=== PATIENT | female | born 1975 | race Caucasian/White ===

== ENCOUNTER → 2020-08-21 14:00 | Outpatient (REF) | payer OTHER, SELFPAY ==
--- NOTE | 2020-08-21 14:10 | ECG_ITS ---
Hook-up date: 2020-08-21 14:16:00 Duration: 24:22:00 Test Indications: PALPITATIONS Medications: [id number] QRS complexes 220 Ventricular ectopics which represent <1 % of total QRS comp. 1 Supraventricular ectopics which represent <1 % of total QRS comp. * Paced QRS complexs which represent % of total QRS comp. VENTRICULAR ECTOPY 220 Isolated 0 Bigeminal Cycles 0 Couplets 0 Runs 0 Beats in Runs * Beats LONGEST at * BPM at :: -- * Beats FASTEST at * BPM at :: -- SUPRAVENTRICULAR ECTOPY 1 Isolated 0 Couplets 0 Runs 0 Beats in Runs * Beats LONGEST at * BPM at :: -- * Beats FASTEST at * BPM at :: -- HEART RATES 53 MIN at 03:32:29 2020-08-22 84 AVG 150 MAX at 06:02:42 2020-08-22 LONGEST RR 1.2080 secs at 04:31:01 2020-08-22 S-T LEVELS Channel 1 - 128 mm at 14:16:00 2020-08-21 - 128 mm at 14:16:00 2020-08-21 Channel 2 - 128 mm at 14:16:00 2020-08-21 - 128 mm at 14:16:00 2020-08-21 Channel 3 - 128 mm at 03:33:51 -- - 128 mm at 03:33:51 Underlying rhythm is sinus; Average ventricular rate 84/min; range 53-150/min; About 19% of the time, ventricular rate >100/min; Rare PVCs; Symptoms of shortness of breath, chest pressure correlate with sinus rhythm. Referred By: Adrianna Dyer Overread By: SHAYAN KYLE
== END ==
LOC: HO.CARD 14:00
PROVIDERS: Visit Provider Registered Nurse Community Health
DX: R00.2 Palpitations (principal)
CPT/HCPCS: 93225; 93226

== ENCOUNTER 2020-11-20 10:37 | Outpatient (REF) | payer OTHER, SELFPAY ==
--- NOTE | ~2020-11-20 | XR_ITS ---
EXAMINATION: XR KNEE, LEFT CLINICAL INFORMATION: Left knee pain COMPARISON: None TECHNIQUE: Four views of the left knee. FINDINGS: Bones and soft tissues are normal. No fracture or joint effusion. Alignment is anatomic. Joint spaces are well maintained. No abnormal soft tissue calcification. XR/XR knee LT 4V IMPRESSION: Normal appearing left knee.
== END 2020-11-20 10:38 | disposition home or self-care (01) ==
LOC: HO.XRAY 10:37
PROVIDERS: PCP Internal Medicine; Visit Provider Internal Medicine
DX: M25.562 Pain in left knee (principal)
CPT/HCPCS: 73564

== ENCOUNTER 2022-06-28 12:43 | Outpatient (REF) | payer OTHER, SELFPAY ==
--- NOTE | ~2022-06-28 | XR_ITS ---
EXAMINATION: XR LUMBOSACRAL SPINE CLINICAL INFORMATION: Chronic midline low back pain. No sciatica. COMPARISON: Lumbar radiographs 10/11/2017. Ultrasound abdomen 04/06/2017 TECHNIQUE: Three views of the lumbosacral spine. FINDINGS: There is normal lumbar segmentation with 5 nonrib-bearing lumbar vertebrae of normal height and normal lumbar lordosis. No lumbar vertebral compression, spondylolisthesis, disc narrowing, or destructive process. No erosive changes. The SI joints and visualized sacrum are unremarkable. There are 2 incidental calcified granulomata are again seen left upper quadrant overlying the spleen. XR/XR lumbar spine 2-3V IMPRESSION: No vertebral compression, spondylolisthesis, or disc narrowing.
== END 2022-06-28 12:44 | disposition home or self-care (01) ==
LOC: HO.XRAY 12:43
PROVIDERS: PCP Internal Medicine; Visit Provider Internal Medicine
DX: M54.50 Low back pain, unspecified (principal); G89.29 Other chronic pain
CPT/HCPCS: 72100

== ENCOUNTER 2023-07-07 12:36 | Outpatient (REF) | payer OTHER, SELFPAY ==
[2023-07-07 14:29] LABS: MANUAL DIFF FLAG NO
[2023-07-07 14:33] LABS: Basophils Percent Auto 0.6 % (0-2); Eosinophils Absolute Auto 0.1 X10*3/uL (0.0-0.4); Eosinophils Percent Auto 1.5 % (0-4); Hematocrit 39.5 % (37.0-47.0); Hemoglobin 12.8 g/dl (12.0-16.0); Imm Gran Abs Auto 0.02 X10*3/uL (0.00-0.03); Imm Gran Pct Auto 0.3 % (0.0-0.4); Lymphocytes Absolute Auto 1.8 X10*3/uL (1.2-4.9); Lymphocytes Percent Auto 26.7 % (20-40); Mean Corpuscular HGB Conc 32.4 g/dl (31.0-35.0); Mean Corpuscular Hemoglobin 28.7 pg (27.0-33.0); Mean Corpuscular Volume 88.6 fL (80.0-98.0); Mean Platelet Volume 9.9 fL (9.4-12.3); Monocytes Absolute Auto 0.7 X10*3/uL (0.1-1.2); Monocytes Percent Auto 10.6 % (2-11); Neutrophils Percent Auto 60.3 % (45-73); Platelet Count 365 X10*3/uL (160-400); Red Blood Count 4.46 X10*6/uL (4.20-5.50); Red Cell Distribution Width 13.7 % (11.0-16.0); White Blood Count 6.6 X10*3/uL (4.8-10.8)
[2023-07-07 14:59] LABS: Alanine Aminotransferase 20 U/L (0-31); Albumin Level 4.2 g/dL (3.5-5.0); Alkaline Phosphatase 71 U/L (39-117); Anion Gap 11 (12-20); Aspartate Amino Transferase 16 U/L (5-31); Bilirubin Total 0.3 mg/dL (0.0-1.0); Blood Urea Nitrogen 18 mg/dL (9-16); Calcium 9.5 mg/dL (8.4-10.2); Carbon Dioxide 25 mmol/L (22-29); Chloride 107 mmol/L (96-108); Estimated Glomerular Filt Rate > 60; Glucose Random 88 mg/dL (60-115); Potassium 3.9 mmol/L (3.3-5.1); Sodium 139 mmol/L (135-145); Total Protein 7.6 g/dL (6.5-8.0)
[2023-07-07 15:05] LABS: TSH reflex Free T4 1.28 uIU/mL (0.32-4.0)
== END 2023-07-07 12:37 | disposition home or self-care (01) ==
LOC: HO.CHCLDS 12:36
PROVIDERS: Visit Provider Internal Medicine
DX: Z00.00 Encounter for general adult medical examination without abnormal findings (principal); R61 Generalized hyperhidrosis
CPT/HCPCS: 36415; 80053; 84443; 85025

== ENCOUNTER → 2023-08-16 15:27 | Outpatient (REF) | payer OTHER, SELFPAY ==
--- NOTE | 2023-08-16 15:32 | ECG_ITS ---
Test Reason : CP, SOB Blood Pressure : / mmHG Vent. Rate : 076 BPM Atrial Rate : 076 BPM P-R Int : 178 ms QRS Dur : 076 ms QT Int : 378 ms P-R-T Axes : 051 029 045 degrees QTc Int : 425 ms Normal sinus rhythm Normal ECG No previous ECGs available Referred By: Marlen Galindo Electronically Signed By:KRISTAN CARRINGTON MD
--- NOTE | 2023-08-16 15:33 | CA_ITS ---
Transthoracic Echocardiogram Patient (Last, First, Middle): Nivia Carr, Gender: Female Date of : 1975 Age: 48 Procedure Date: 08/16/2023 Procedure Type: Transthoracic Echocardiogram Location: OP Height: 160.02 cm Weight: 65.77 kg BSA: 1.69 m2 Heart Rate: bpm BP: 116 / 66 mmHg Finish Painter: Referring MD: Marlen Galindo MD Hydrogen Cell Tender: Cesar Castillo MD Symptoms: R06.02 SOB CHEST PAIN RO7.89 Study Quality: Good ECG Rhythm: Sinus Conclusions: - Normal study Findings Left Ventricle Normal left ventricular size, thickness, and systolic function. The visually estimated ejection fraction is between 55-60%. Spectral Doppler is indicative of a normal filling pattern. Peak GLS is -19.6%, within normal limits. Right Ventricle Normal right ventricular cavity size and systolic function. Atria Both atria are normal in size. There is no evidence of interatrial shunt. Aortic Valve Normal aortic valve structure and function. There is no aortic valve stenosis. There is no aortic valve regurgitation. Mitral Valve Normal mitral valve structure and function. There is trace mitral valve regurgitation. There is no mitral valve stenosis. Pulmonic Valve The pulmonic valve is likely normal. There is trace pulmonic valve regurgitation. Tricuspid Valve Normal tricuspid valve structure. There is trace tricuspid valve regurgitation. The right ventricular systolic pressure is normal. The right ventricular systolic pressure is 13 mmHg. Normal right atrial pressure. There is no evidence of pulmonary hypertension. Great Vessels All visible segments of the aorta are normal in size. The pulmonary artery was not well visualized. Venous The inferior vena cava is normal in size and collapses greater than 50% with inspiration. Pericardium/Pleural There is no evidence of pericardial effusion. Prior Study Comparison No prior study available for comparison. Measurements 2D Linear Measurements IVSd: 0.76 0.6-0.9/0.6-1.0 cm LVIDd: 4.05 3.9-5.3/4.2-5.9 cm LVIDd Index: 2.40 2.4-3.2/2.2-3.1 cm/m2 LVIDs: 2.43 2.0-3.6 cm LVPWd: 0.75 0.7-1.1 cm Ao Root: 2.80 2.1-3.5 cm LA Diam: 3.10 2.7-3.8/3.0-4.0 cm LAIDs Index: 1.83 1.5-2.3 cm/m2 LV Mass: 109.19 67-162/88-224 g LV Mass Index: 64.61 43-95/49-115 g/m2 LVOT Diam: 2.00 3.0+(-)1.3 cm 2D Systolic Function EF 4C: 59.20 >55% EF 2C: 55.30 >55% EF BiP: 57.60 >55% Mitral Valve MV Pk E: 0.92 MV PK A: 0.75 MV Decel Time: 155.00 E/A: 1.20 E'Lateral: 14.10 E'Medial: 10.70 E/E' Med: 8.60 E/E' Lat: 6.50 PHT: 45.00 MVA PHT: 4.89 Decel Edgar: 5.96 Aortic Valve AoV Pk Kiel: 1.31 AoV Mn Kiel: 0.78 AoV VTI: 0.28 AoV Pk Grad: 7.00 Aov Mn Grad: 3.00 KYE Cont.VTI: 2.71 LVOT LVOT Pk Kiel: 1.15 LVOT Mn Kiel: 0.74 LVOT VTI: 0.24 LVOT Pk Grad: 5.00 LVOT Mn Grad: 3.00 LVOT Diam: 2.00 LVOT Area: 3.14 Diastolic Function MV Pk E: 0.92 MV Pk A: 0.75 E/A: 1.20 E'Medial: 10.70 E/E' Med: 8.60 E' Laterial: 14.10 E/E' Lat: 6.50 Right Ventricle TAPSE (mm): 21.00 TVS' Kiel: 11.00 Tricuspid Valve TR Pk Kiel: 1.55 TR Pk Grad: 10.00 RA Press: 3.00 RVSP: 13.00 Great Vessels Aorta Ao Root-2D: 2.80 2.0-3.7 cm Ao Asc: 3.00 2.1-3.4 cm Pulmonary Valve PV Pk Kiel: 0.96 Peak PV Grad: 4.00 Updated in Other Vendor System with Status of Final Cesar Castillo MD electronically signed on 08/17/2023 3:10:46 PM with status of Final
== END ==
LOC: HO.CARD 15:27
PROVIDERS: PCP Internal Medicine; Visit Provider Internal Medicine
DX: R07.89 Other chest pain (principal); R06.02 Shortness of breath
CPT/HCPCS: 93005; 93306; 93356

== ENCOUNTER → 2023-08-16 15:32 | Outpatient (BNV) | payer OTHER, SELFPAY | PROVIDERS: PCP Internal Medicine; Visit Provider Internal Medicine Cardiovascular Disease | DX: R07.9 Chest pain, unspecified (principal); R06.02 Shortness of breath | CPT/HCPCS: 93306; 93356 ==

== ENCOUNTER 2024-01-21 10:48 | Outpatient (REF) | payer OTHER, SELFPAY ==
--- NOTE | ~2024-01-21 | XR_ITS ---
EXAMINATION: XR HAND/WRIST, LEFT CLINICAL INFORMATION: Left hand and wrist and thumb pain. COMPARISON: None available. TECHNIQUE: PA, lateral, and oblique views of the left hand and wrist. FINDINGS: The bones and soft tissues are normal. No fracture. Alignment is anatomic. Joint spaces are maintained. No erosions or soft tissue calcifications. XR/XR hand wrist LT IMPRESSION: Normal radiographs of the hand and wrist. Electronically signed by: Mekhi Guerrero MD 01/27/2024 07:30 AM EDT
== END 2024-01-21 10:49 | disposition home or self-care (01) ==
LOC: HO.XRAY 10:48
PROVIDERS: PCP Pediatrics; Visit Provider Pediatrics
DX: M25.532 Pain in left wrist (principal); M79.642 Pain in left hand
CPT/HCPCS: 73110; 73130

== ENCOUNTER 2024-06-18 15:58 | Outpatient (REF) | payer OTHER, SELFPAY ==
--- OUTSIDE RECORDS SUMMARY | 2024-06-18 17:16 | XMS_ITS | Clinical Summary ---
Author Organization [employer] Address [address] [facility] 7[address] [place] [address] Care Team Providers Care Clinical Account Manager Name Role Phone Marlen Galindo MD Primary Care Provider Allergies No known active allergies Medications fexofenadine (Allergy Relief) 180 MG tabletIndicatio ns:Seasonal allergies Take 1 tablet (180 mg) by mouth Once per day. 30 tablet 11 4 01/14/20 25 Active lidocaine-prilo maris (Emla) 2.5-2.5 % cream Apply topically bid to affected area 30 g 1 4 Active pseudoephedrine (Sudafed) 30 MG tabletIndicatio ns:Vertigo Take 1 tablet (30 mg) by mouth every 4 (four) hours if needed for congestion for up to 10 days. 30 tablet 4 Active loratadine (Claritin) 10 MG tabletIndicatio ns:Acute sinusitis with symptoms > 10 days Take 1 tablet (10 mg) by mouth Once per day. 30 tablet 4 Active Active Problems Problem Noted Date Diagnosed Date Vitamin D deficiency 2022 Legal blindness [place] 02/07/2014 Encounters Date Type Department Care Team Description 06/12/2024 Telephone [facility] [address] [place] [address] Marlen Galindo MD 04/05/2024 Telephone [facility] [address] [place] [address] Marlen Galindo MD 04/04/2024 Orders Only [facility] [address] [place] [address] Marlen Galindo MD Seasonal allergies (Primary Dx) 03/27/2024 3:20 PM EST Office Visit [facility] [address] [place] [address] Marlen Galindo MD Vertigo (Primary Dx); Acute sinusitis with symptoms > 10 days 03/27/2024 Travel 03/27/2024 Telephone [facility] [address] [place] [address] Marlen Galindo MD Nurse Triage from Last 3 Months Immunizations Name Administration Dates Next Due Influenza injectable quadriv alent IIV4 with preservative 03/04/2016 Influenza injectable quadriv alent preservative free 07/07/2023,06/14/2019,05/22/2018,2016 Influenza, IIV3, injectable 02/07/2014 Influenza, Split (incl. alexandra fied surface antigen) 02/21/2013 Influenza, seasonal, injecta ble, preservative free 02/14/2024 Moderna Covid-19 Vaccine 12+ 09/15/2020,08/19/19 21 Pfizer Covid-19 Vaccine 12+ 02/14/2024 Tdap 07/07/2023,05/22/2012 Family History Medical History Relation Name Comments Dementia Father Diabetes type II Father Hypertension Father Leukemia Maternal Grandfather Fibromyalgia Mother Osteoporosis Mother Supraventricular tachycardia Mother Thyroid disease Mother Relation Name Status Comments Father Maternal Grandfather Mother Social History Tobacco Use Types Packs/Day Years Used Date Smoking Tobacco: Never Passive Smoke Exposure: Never Smokeless Tobacco: Never Tobacco Cessation:Counseling Given: Not Answered Depression Answer Date Recorded Patient Health Questionnaire-9 Score 4 07/07/2023 Patient Health Questionnaire-9 Score 4 07/07/2023 Last PHQ-9: Questionnaire Data Not on file 0 07/07/2023 Housing Stability Answer Date Recorded What is your housing situation today? I have chon aleman 06/30/[address] you li ve. Do you have problems with any of the following? None of the above 06/30/2023 Food Insecurity Answer Date Recorded Within the past 12 months, y ou worried that your food would run out before you got money to buy more: Never True 06/30/2023 Within the past 12 months,th e food you bought just didn't last and you didn't have enough money to get more: Never True Transportation Answer Date Recorded In the past 12 months, has l ack of transportation kept you from medical appts, meetings, work or from getting things needed for daily living? No 06/30/2023 Utilities Answer Date Recorded In the past 12 months, has t he [employer], gas, oil or water company threatened to shut off services in your home? No 06/30/2023 Depression Answer Date Recorded Patient Health Questionnaire-2 Score 0 07/07/2023 Comments Unknown Sex and Gender Information Value Date Recorded Sex Assigned at Female 03/15/2022 10:17 AM EDT Legal Sex Female 10:17 AM EDT Gender Identity Female 03/15/2022 10:17 AM EDT Sexual Orientation Straight 03/15/2022 10 :17 AM EDT Last Filed Vital Signs Vital Sign Reading Time Taken Comments Blood Pressure 125/80 03/27/2024 3:28 PM EST Pulse 74 03/27/2024 3:28 PM EST Temperature 36.5 ??C (97.7 ??F) 03/27/2024 3:28 PM ES T Respiratory Rate 20 03/27/2024 3:28 PM EST Oxygen Saturation 99% 03/27/2024 3:28 PM EST Inhaled Oxygen Concentration - - Weight 68.5 kg (151 lb) 03/27/2024 3:28 PM EST Height 160 cm (5' 3 ) 03/27/2024 3:28 PM EST Body Mass Index 26.75 03/27/2024 3:28 PM EST Plan of Treatment Upcoming Encounters Date Type Department Care Team (Late st Contact Info) Description 06/20/2024 3:00 PM EST Clinical Support [facility] [address] [place] [address] 07/09/2024 9:30 AM EST Office Visit [facility] [address] [place] [address] Marlen Galindo MD [address] [place] [address] Health Maintenance Due Date Last Done Comments CT Colonography 1975 FIT DNA/Cologuard 1975 FIT 1975 FOBT 1975 HIV Screening 1975 Sigmoidoscopy 1975 Alcohol/Substance Use Screening 1988 Family Planning (PISQ) 1991 Hepatitis B Vaccines (1 of 3 - 19+ 3-dose series) 1995 Pap Smear 1997 Cervical Cancer Screening 2006 HPV/Cotest 2006 Mammogram 03/30/2024 03/30/2022 SDOH Screening 06/30/2024 06/30/2023 Depression Screening 07/07/2024 07/07/2023, 07/07/19 24 Tobacco Screening 03/27/2025 03/27/2024 Colonoscopy 01/13/2026 01/13/2021 Colorectal Cancer Screening 01/13/2026 Zoster Vaccines (1 of 2) 2026 DTaP/Tdap/Td Vaccines (3 - Td or Tdap) 07/07/2033 07/07/2023, 05/22/2012 RSV Patients and Patients Aged 60 years or older (1 - 1-dose 75+ series) 2051 Hepatitis C Screening Completed 03/26/2022 COVID-19 Vaccine Completed 02/14/2024, , 09/15/2020, Additional history exists Influenza Vaccine Completed 02/14/2024, , 04/29/2021, Additional history exists HIB Vaccines Aged Out No longer eligi ble based on patient's age to complete this topic HPV Vaccines Aged Out No longer eligi ble based on patient's age to complete this topic Hepatitis A Vaccines Aged Out No long er eligible based on patient's age to complete this topic IPV Vaccines Aged Out No longer eligi ble based on patient's age to complete this topic Meningococcal Vaccine Aged Out No clotilde elvira eligible based on patient's age to complete this topic Pneumococcal Vaccine: Pediatrics (0 to 5 Years) and At-Risk Patients (6 to 49) Years) Aged Out No longer eligible based on patient's age to complete this topic RSV under 20 months Aged Out No longe r eligible based on patient's age to complete this topic Rotavirus Vaccines Aged Out No longer eligible based on patient's age to complete this topic Procedures Procedure Name Priority Date/Time Associated Diagnosis Comments XR PARANASAL SINUSES 1-2 VIEWS Routine 04/02/2024 Acute sinusitis with symptoms > 10 days MAMMOGRAPHY Routine 03/30/2022 ZZZ HISTORICAL HEPATITIS C AB W/REFL TO HCV RNA, QN, PCR Routine 03/26/2022 9:10 AM EST COLONOSCOPY Routine 01/13/2021 from Last 3 Months or Most Recently Relevant to Health Maintenance Results * XR Paranasal Sinuses 1-2 Views (04/02/2024) Anatomical Region Laterality Modality Head, Neck Radiographic Barb ging Marlen Galindo MD IMG XR PROCEDURES Final Res ult * Mammography (03/30/2022) Mammogram Bi-rads 2 Anatomical Region Laterality Modality Other us Historical Provider MD HEALTH MAINTENANCE Final Result * HEPATITIS C AB W/REFL TO HCV RNA, QN, PCR (03/26/2022 9:10 AM EST) HEPATITIS C ANTIBODY NON-REACTI VE NON-REACT PALMER CONVERTED LEGACY LABS INDEX 0.04 <1.00 CONVERTED LEGACY LABS Comment: ?? HCV antibody was non-reactive. There is no laboratory ?? evidence of HCV infection. ?? In most cases, no further action is required. However, if recent HCV exposure is suspected, a test for HCV RNA (test code 92499) is suggested. ?? For additional information please refer to http://education.[employer])/faq/TPZ51q8 (This link is being provided for informational/ educational purposes only.) ?? 03/26/2022 9:10 AM EST us Marlen Galindo MD HISTORICAL/NON ORDERABLE LA BS Final Result CONVERTED LEGACY LABS * Hm Colonoscopy (01/13/2021) Colonoscopy Normal Normal Narrative [place] Damon - 01/13/2021 Recommended 5 year follow up us Historical Provider MD HEALTH MAINTENANCE Final Result from Last 3 Months or Most Recently Relevant to Health Maintenance Insurance - [employer] Care Teams Clinical Account Manager Relationship Specialty Start Date End Date Marlen Galindo MD [address] [place] [phone] PCP - General Internal Medicine 12/23/14
--- OUTSIDE RECORDS SUMMARY | 2024-06-18 17:16 | XMS_ITS | Encounter Summary ---
Author Organization [employer] Address [address] [facility] 7 [place] [address] Care Team Providers Care Advertising Production Manager Name Role Phone Marlen Galindo MD Primary Care Provider [phone]- [phone] Reason for Visit * Reason Onset Date Comments Results 08/19/2023 Encounter Details Date Type Department Care Team ([facility] st Contact Info) Description 08/19/2023 Telephone [facility] [address] [place] [address] Marlen Galindo MD [address] [place] [address] Results Social History Tobacco Use Types Packs/Day Years Used Date Smoking Tobacco: Never Smokeless Tobacco: Never Depression Answer Date Recorded Patient Health Questionnaire-9 [...] the past 12 months, has t he electric, gas, oil or water company threatened to shut off services in your home? No 06/30/2023 Depression Answer Date Recorded Patient Health Questionnaire-2 Score 0 07/07/2023 Comments Unknown Sex and Gender Information Value Date Recorded Sex Assigned at Female 03/15/2022 10:17 AM EDT Legal Sex Female 10:17 AM EDT Gender Identity Female 03/15/2022 10:17 AM EDT Sexual Orientation Straight 03/15/2022 10 :17 AM EDT documented as of this encounter Miscellaneous Notes * Telephone Encounter - Mindi Moss RN - 08/22/2023 10:21 AM EDT Normal ECG letter mailed out to pt. * Telephone Encounter - Roseline Fiore - 08/19/2023 12:51 PM EDT Tc from pt requesting ECG results. Please contact at [phone] documented in this encounter Plan of Treatment Upcoming Encounters Date Type Department Care Team (Late st Contact Info) Description 06/20/2024 3:00 PM EST Clinical Support [facility] [address] [place] [address] 07/09/2024 9:30 AM EST Office Visit [facility] [address] [place] [address] Marlen Galindo MD [address] [place] [address] documented as of this encounter Visit Diagnoses Not on filedocumented in this encounter Additional Health Concerns Assessment Noted Time PHQ-9 Depression Total Score: 4 07/07/19 2:01 PM EST documented as of this encounter Care Teams Advertising Production Manager Relationship Specialty Start Date End Date Marlen Galindo MD [address] [place] [address] PCP - General Internal Medicine 12/23/14 documented as of this encounter
--- OUTSIDE RECORDS SUMMARY | 2024-06-18 17:16 | XMS_ITS | Encounter Summary ---
Author Organization [employer] Address [address] [facility] [address] [place] [address] Care Team Providers Care Millinery Blocker Name Role Phone Marlen Galindo MD Primary Care Provider [phone]- [phone] Encounter Details Date Type Department Care Team ([facility] st Contact Info) Description 06/12/2024 Telephone [facility] [address] [place], [place] [id number] Marlen Galindo MD [address] [place] [address] Social History Tobacco Use Types Packs/Day Years Used Date Smoking Tobacco: Never Passive Smoke Exposure: Never Smokeless Tobacco: Never Depression Answer Date [...] encounter Miscellaneous Notes * Telephone Encounter - Jenny Otero RN - 06/12/2024 3:16 PM EST TC placed to pt to assisst in scheduling a [place] to have the hepatitis B vaccine. Pt will need the first out of the three dose series. Pt was agreeable to scheduling on 06/20/2024 with the [facility] nurses. Pt also will have ordered TB blood test drawn on that day as well. The pt needs this testing for work. * Telephone Encounter - Janey Seo - 06/12/2024 10:57 AM EST Tc from pt calling to inform needs a TB test and also would like to know if she is due for the Hep B vaccin . States her job is requesting above information. documented in this encounter Plan of Treatment Upcoming Encounters Date Type Department Care Team (Late st Contact Info) Description 06/20/2024 3:00 PM EST Clinical Support [facility] [address] [place] [address] 07/09/2024 9:30 AM EST Office Visit [facility] [address] [place] [address] Marlen Galindo MD [address] [place] [address] Scheduled Orders Name Type Priority Associated Diagnoses Orde r Schedule T-SPOT??.TB Lab Routine Encounter for occupational health assessment Expected: 06/12/2024 (Approximate), Expires: 06/12/2025 documented as of this encounter Visit Diagnoses Diagnosis Encounter for occupational health assessment documented in this encounter Additional Health Concerns Assessment Noted Time PHQ-9 Depression Total Score: 4 07/07/19 24 2:01 PM EST documented as of this encounter Care Teams Millinery Blocker Relationship Specialty Start Date End Date Marlen Galindo MD [address] [place] [id number] PCP - General Internal Medicine 12/23/14 documented as of this encounter
--- OUTSIDE RECORDS SUMMARY | 2024-06-18 17:16 | XMS_ITS | Encounter Summary ---
Author Organization [employer] Address [address] [facility] [address] [address] Care Team Providers Care Fire Assistant Name Role Phone Marlen Galindo MD Primary Care Provider [phone]- [phone] Reason for Referral * Consultation (Routine) - Authorized Specialty Diagnoses / Procedures Referred By Contmelissa t Referred To Contact Allergy Diagnoses Seasonal allergies Marlen Galindo MD [address] [place] [address] Phone: tel: fax: Nando Wren MD [address] [place] [address] [address] [place] [phone] Phone: tel: fax: Referral ID Status Reason Start Date Expiration Date Visits Requested Visits Authorized [id number] Authorized Specialty Services Required 04/04/2025 1 1 Encounter Details Date Type Department Care Team (Late st Contact Info) Description 04/04/2024 Orders Only [facility] [address] [place] [address] Marlen Galindo MD [address] [place] [address] Seasonal allergies (Primary Dx) Social History Tobacco Use Types Packs/Day Years [...] AM EDT documented as of this encounter Plan of Treatment Upcoming Encounters Date Type Department Care Team ([facility] st Contact Info) Description 06/20/2024 3:00 PM EST Clinical Support [facility] [address] [place] [address] 07/09/2024 9:30 AM EST Office Visit [facility] [address] [place] [address] Marlen Galindo MD [address] [place] [address] Scheduled Referrals Name Type Priority Associated Diagnoses Orde r Schedule Referral to Allergy Outpatient Referral Routine Seasonal allergies Expected: 04/04/2024 (Approximate), Expires: 04/04/2025 documented as of this encounter Visit Diagnoses Diagnosis Seasonal allergies- Primary Allergic rhinitis, cause unspecified documented in this encounter Additional Health Concerns Assessment Noted Time PHQ-9 Depression Total Score: 4 07/07/19 24 2:01 PM EST documented as of this encounter Care Teams Fire Assistant Relationship Specialty Start Date End Date Marlen Galindo MD [address] [place] [address] PCP - General Internal Medicine 12/23/14 documented as of this encounter
--- OUTSIDE RECORDS SUMMARY | 2024-06-18 17:16 | XMS_ITS | Encounter Summary ---
Author Organization [employer] Address [address] [facility] [address] [place] [address] Care Team Providers Care Spreader Box Operator Name Role Phone Marlen Galindo MD Primary Care Provider +1 [phone] Encounter Details Date Type Department Care Team (Late st Contact Info) Description 03/11/2023 Abstract [facility] MEDICINE [address] [place] [address] Marlen Galindo MD [address] [place] [address] Social History Tobacco Use Types Packs/Day Years Used Date Smoking Tobacco: Never Smokeless Tobacco: Never Depression Answer Date Recorded Patient Health Questionnaire-9 Score 1 2022 Housing Stability Answer Date Recorded What is your housing situation today? I have chonshai aleman 03/11/[address] you li ve. Do you have problems with any of the following? None of the above 03/11/2023 Food Insecurity Answer Date Recorded Within the past 12 months, y ou worried that your food would run out before you got money to buy more: Never True 03/11/2023 Within the past 12 months,th e food you bought just didn't last and you didn't have enough money to get more: Never True Transportation Answer Date Recorded In the past 12 months, has l ack of transportation kept you from medical appts, meetings, work or from getting things needed for daily living? No 03/11/2023 Utilities Answer Date Recorded In the past 12 months, has t he electric, gas, oil or water company threatened to shut off services in your home? No 03/11/2023 Depression Answer Date Recorded Patient Health Questionnaire-2 Score 0 2022 Comments Unknown Sex and Gender Information Value Date Recorded Sex Assigned at Female 03/15/2022 10:17 AM EDT Legal Sex Female 10:17 AM EDT Gender Identity Female 03/15/2022 10:17 AM EDT Sexual Orientation Straight 03/15/2022 10 :17 AM EDT documented as of this encounter Plan of Treatment Upcoming Encounters Date Type Department Care Team ([facility] st Contact Info) Description 06/20/2024 3:00 PM EST Clinical Support [facility]EDS [address] [place] [address] 07/09/2024 9:30 AM EST Office Visit [facility] [address] [place] [address] Marlen Galindo MD [address] [place] [address] documented as of this encounter Procedures Procedure Name Priority Date/Time Associated Diagnosis Comments MAMMOGRAPHY Routine 03/30/2022 COLONOSCOPY Routine 01/13/2021 documented in this encounter Results * Mammography (03/30/2022) Mammogram Bi-rads 2 Anatomical Region Laterality Modality Other Historical Provider HEALTH MAINTENANCE Final Result * Colonoscopy (01/13/2021) Colonoscopy Normal Normal Narrative Africa Damon - 01/13/2021 Recommended 5 year follow up Historical Provider HEALTH MAINTENANCE Final Result documented in this encounter Visit Diagnoses Not on filedocumented in this encounter Additional Health Concerns Assessment Noted Time PHQ-9 Depression Total Score: 1 06/17/19 23 9:39 AM EST documented as of this encounter Care Teams Spreader Box Operator Relationship Specialty Start Date End Date Marlen Galindo MD [address] [place] [address] PCP - General Internal Medicine 12/23/14 documented as of this encounter
--- OUTSIDE RECORDS SUMMARY | 2024-06-18 17:16 | XMS_ITS | Encounter Summary ---
Author Organization [employer] [facility] Address [address] [place] [address] [address], [place] [address] Care Team Providers Care Supervisor Tank Cleaning Name Role Phone Marlen Galindo MD Primary Care Provider +1- [phone] Encounter Details Date Type Department Care Team (Latest Contact Info) Description 03/19/2021 Abstract [facility] CONVERSIONS Dental, Provider, DDS Social History Tobacco Use Types Packs/Day Years Used Date Smoking Tobacco: Never Assessed Comments Unknown Sex and Gender Information Value Date Recorded Sex Assigned at Female 03/15/2022 10:17 AM EDT Legal Sex Female 10:17 AM EDT Gender Identity Female 03/15/2022 10:17 AM EDT Sexual Orientation Straight 03/15/2022 10 :17 AM EDT documented as of this encounter Plan of Treatment Upcoming Encounters Date Type Department Care Team ( st Contact Info) Description 06/20/2024 3:00 PM EST Clinical Support [facility] MED & PEDS [address] [place] [address] 07/09/2024 9:30 AM EST Office Visit [facility] MED [facility] PED[facility] [address] [place] [address] Marlen Galindo MD [address] [place] [address] documented as of this encounter Visit Diagnoses Not on filedocumented in this encounter Care Teams Supervisor Tank Cleaning Relationship Specialty Start Date End Date Marlen Galindo MD [address] [place] [address] PCP - General Internal Medicine 12/23/14 documented as of this encounter
--- OUTSIDE RECORDS SUMMARY | 2024-06-18 17:16 | XMS_ITS | Clinical Summary ---
Author Organization [facility] Address [address] [place] [address] Phone Care Team Providers Care E M Assembler Name Role Phone Marlen Galindo MD Primary Care Provider +1 -[phone] Encounters Date Type Department Care Team Description 04/02/2024 12:26 PM EST - 04/02/2024 11:59 PM EST Hospital Encounter [facility] Xray [address] [place] [address] Acute sinusitis, recurrence not specified, unspecified location Discharge Disposition: Home or Self Care from Last 3 Months Social History Tobacco Use Types Packs/Day Years Used Date Smoking Tobacco: Never Assessed Sex and Gender Information Value Date Recorded Sex Assigned at Female 04/02/2024 12:18 PM EST Gender Identity Female 04/02/2024 12:18 PM EST Sexual Orientation Straight 04/02/2024 12 :18 PM EST Job Start Date Occupation Industry Not on file Not on file Not on file Plan of Treatment Health Maintenance Due Date Last Done Comments Breast Cancer Screening 1976 Hepatitis B Vaccines (1 of 3 - 19+ 3-dose series) 1995 Cervical Cancer Screening: Pap Smear 1997 Colorectal Cancer Screening: Colonoscopy 04/18/2022 HIV Screening 04/18/2022 Hepatitis C Screening 04/18/2022 Medicare Annual Wellness Visit 04/18/2022 Social Influencers of Health Screening 04/18/2022 Depression Screening 07/07/2024 07/07/2023 DTaP,Tdap,and Td Vaccines (3 - Td or Tdap) 07/07/2033 07/07/2023, 05/22/2012 COVID-19 Vaccine Completed 02/14/2024, , 09/15/2020, Additional [...] on patient's age to complete this topic MMR Vaccines Aged Out No longer eligi ble based on patient's age to complete this topic Meningococcal ACWY Vaccine Aged Out N o longer eligible based on patient's age to complete this topic Pneumococcal Vaccine: Pediatrics (0 to 5 Years) and At-Risk Patients (6 to 64 Years) Aged Out No longer eligible based on patient's age to complete this topic RSV Immunization Patients Under 20 months Aged Out No longer eligible based on patient's age to complete this topic Varicella Vaccines Aged Out No longer eligible based on patient's age to complete this topic Procedures Procedure Name Priority Date/Time Associated Diagnosis Comments XR PARANASAL SINUSES LESS 3 VIEWS Routine 04/02/2024 12:39 PM EST Acute sinusitis, recurrence not specified, unspecified location from Last 3 Months Results * XR Paranasal Sinuses Less 3 Views (04/02/2024 12:39 PM EST) Anatomical Region Laterality Modality Head and Neck Radiographic Barb ging 04/03/2024 9:38 AM EST Impressions 04/03/2024 9:38 AM EST Impression: No evidence of sinusitis. -------- FINAL REPORT -------- Dictated By: Judith Malone Dictated Date: 04/03/2024 09:38 ET Assigned Physician: Judith Malone Reviewed and Electronically Signed By: Judith Malone Signed Date: 04/03/2024 09:38 ET Workstation ID: [id number] Transcribed By: Self Edit Transcribed Date: 04/03/2024 09:38 ET Narrative 04/03/2024 9:38 AM EST History: Facial pain and pressure. Findings: Multiple views of the paranasal sinuses are submitted. The sinuses are well- developed and clear. The mastoids are well-pneumatized. Procedure Note Judith Malone MD - 04/03/2024 History: Facial pain and pressure. Findings: Multiple views of the paranasal sinuses are submitted. The sinuses arewell- developed and clear. The mastoids are well-pneumatized. IMPRESSION: Impression: No evidence of sinusitis. -------- FINAL REPORT -------- Dictated By: Judith Malone Dictated Date: 04/03/2024 09:38 ET Assigned Physician: Judith Malone Reviewed and Electronically Signed By: Judith Malone Signed Date: 04/03/2024 09:38 ET Workstation ID: [id number] Transcribed By: Self Edit Transcribed Date: 04/03/2024 09:38 ET Marlen Galindo MD IMG XR PROCEDURES from Last 3 Months Care Teams E M Assembler Relationship Specialty Start Date End Date Marlen Galindo MD [address] [place] [address] PCP - General Internal Medicine 04/02/24
--- OUTSIDE RECORDS SUMMARY | 2024-06-18 17:16 | XMS_ITS | Encounter Summary ---
Author Organization [employer] Address [address] [facility] 7 [place] [address] Care Team Providers Care Cryptographic Clerk Name Role Phone Marlen Galindo MD Primary Care Provider +1- [phone] Reason for Visit * Reason Onset Date Comments Referral 06/06/2023 Encounter Details Date Type Department Care Team ([facility] st Contact Info) Description 06/06/2023 Telephone [facility] MEDICINE [address] [place] [address] Marlen Galindo MD [address] [place] [address] Referral Social History Tobacco Use Types Packs/Day Years [...] encounter Miscellaneous Notes * Telephone Encounter - Enriqueta Pisano - 06/06/2023 12:45 PM EST New referral faxed. * Telephone Encounter - Roseline Fiore - 06/06/2023 12:08 PM EST Tc from pt requesting a referral renewal for team rehab. Please contact at [phone] documented in this encounter Plan of Treatment Upcoming Encounters Date Type Department Care Team ([facility] st Contact Info) Description 06/20/2024 3:00 PM EST Clinical Support [facility] MED & PEDS [address] [place] [address] 07/09/2024 9:30 AM EST Office Visit [facility] MED & PEDS [address] [place] [address] Marlen Galindo MD [address] [place] [address] documented as of this encounter Visit Diagnoses Not on filedocumented in this encounter Additional Health Concerns Assessment Noted Time PHQ-9 Depression Total Score: 1 06/17/19 23 9:39 AM EST documented as of this encounter Care Teams Cryptographic Clerk Relationship Specialty Start Date End Date Marlen Galindo MD [address] [place] [address] PCP - General Internal Medicine 12/23/14 documented as of this encounter
--- OUTSIDE RECORDS SUMMARY | 2024-06-18 17:16 | XMS_ITS | Encounter Summary ---
Author Organization [employer] Address [address] [facility] 7 [place] [address] Care Team Providers Care Production Tester Name Role Phone Marlen Galindo MD Primary Care Provider +1- [phone] Reason for Visit * Reason Onset Date Comments r/s sick visit 06/15/2022 Encounter Details Date Type Department Care Team (Late st Contact Info) Description 06/15/2022 Telephone [facility] MEDICINE [address] [place] [address] Marlen Galindo MD [address] [place] [address] r/s sick visit Social History Tobacco Use Types Packs/Day Years Used Date Smoking Tobacco: Never Assessed Depression Answer Date Recorded Patient Health Questionnaire-9 [...] Orientation Straight 03/15/2022 10 :17 AM EDT COVID-19 Exposure Response Date Recorded In the last 10 days, have yo u been in contact with someone who was confirmed or suspected to have Coronavirus/COVID-19? No / Unsure 09/29/2022 1:57 PM EDT documented as of this encounter Miscellaneous Notes * Telephone Encounter - Roseline Fiore - 06/15/2022 3:13 PM EST Tc from pt requesting to r/s sick visit ( low back pain, radiates down the left leg ) scheduled for06/15/22 @ 4pm with PCP , Appt has been cancelled. Please contact at [phone] documented in this encounter Plan of Treatment Upcoming Encounters Date Type Department Care Team (Late st Contact Info) Description 06/20/2024 3:00 PM EST Clinical Support [facility] MED & PEDS [address] [place] [address] 07/09/2024 9:30 AM EST Office Visit [facility] MED & PEDS [address] [place] [address] Marlen Galindo MD [address] [place] [address] documented as of this encounter Visit Diagnoses Not on filedocumented in this encounter Care Teams Production Tester Relationship Specialty Start Date End Date Marlen Galindo MD [address] [place] [address] PCP - General Internal Medicine 12/23/14 documented as of this encounter
[2024-06-21 00:49] LABS: TS Negative Control Passed; TS Panel A 0; TS Panel B 1; TS Positive Control Passed; TSpotTB Negative (Negative)
== END 2024-06-18 15:59 | disposition home or self-care (01) ==
LOC: HO.CHCLDS 15:58
PROVIDERS: Visit Provider Internal Medicine
DX: Z02.89 Encounter for other administrative examinations (principal)
CPT/HCPCS: 36415; 86481

== ENCOUNTER 2024-07-09 10:37 | Outpatient (REF) | payer OTHER, SELFPAY ==
--- OUTSIDE RECORDS SUMMARY | 2024-07-09 12:01 | XMS_ITS | Encounter Summary ---
Author Organization [employer] Address [address] [facility] 7t [place] [address] Care Team Providers Care Machine Hamper Maker Name Role Phone Marlen Galindo MD Primary Care Provider [phone]- [phone] Encounter Details Date Type Department Care Team ([facility] st Contact Info) Description 06/12/2024 Telephone [facility] MED & PEDS [address] [place], [place] [phone] Marlen Galindo MD [address] [place] [address] Social History Tobacco Use Types Packs/Day Years [...] agreeable to scheduling on 06/20/2024 with the [facility] nurses. Pt also will have ordered TB [...] Care Team (Late st Contact Info) Description 07/19/2024 1:00 PM EST Nurse Only [facility] MED & PEDS [address] [place] [address] 10/10/2024 9:45 AM EDT Office Visit [facility] MED & PEDS [address] [place] [address] Marlen Galindo MD [address] [place] [address] documented as of this encounter Procedures Procedure Name Priority Date/Time Associated Diagnosis Comments T-SPOT(R).TB Routine 06/18/2024 4:00 PM EST Encounter for occupational health assessment documented in this encounter Results * T-SPOT??.TB (06/18/2024 4:00 PM EST) T Spot TB Negative Negative [facility] Comment:A negative test resu lt does not exclude the possibilityof exposure to or infection with Mycobacteriumtuberculosis (M. tuberculosis). Patients with recentexposure to TB infected individuals exhibiting anegative T-SPOT.TB result should be considered forretesting within 6 weeks or if other relevant clinicalsymptoms indicate. Results from T-SPOT.TB testing mustbe used in conjunction with each individual'sepidemiological history, current medical status,and results of other diagnostic evaluations.The T-SPOT.TB test is qualitative and results arereported as positive, borderline, or negative, giventhat the test controls perform as expected. In linewith the Centers for Disease Control and Prevention's2010 recommendation to report quantitative measurementsalongside the qualitative result, the laboratoryprovides spot counts for informational purposes only.The T-SPOT.TB test should not be interpreted as aquantitative test. TS PANEL A 0 [facility] TS PANEL B 1 [facility] Negative Control Passed [facility] Positive Control Passed [facility] Comment:For additional infor mena, please refer tohttp://education.[employer]/faq/ZUL128(This link is being provided for informational/educational purposes only.)THIS TEST WAS PERFORMED AT:[employer] [id number] [place] [address]HPEHRIVRYANN CLEMENTE MD,PHD 06/18/2024 4:00 PM EST 06/18/2024 5:39 PM EST us Marlen Galindo MD LAB BLOOD ORDERABLES Final Result [facility] [address] [place] [phone] documented in this encounter Visit Diagnoses Diagnosis Encounter for occupational health assessment documented in this encounter Additional Health Concerns Assessment Noted Time PHQ-9 Depression Total Score: 4 07/07/19 24 2:01 PM EST documented as of this encounter Care Teams Machine Hamper Maker Relationship Specialty Start Date End Date Marlen Galindo MD [address] [place] [address] PCP - General Internal Medicine 12/23/14 documented as of this encounter
--- OUTSIDE RECORDS SUMMARY | 2024-07-09 12:01 | XMS_ITS | Encounter Summary ---
Author Organization [email or web address] Address [address] [facility] [address] [place] [address] Care Team Providers Care Skid Man Name Role Phone Marlen Galindo MD Primary Care Provider +1 [phone] Encounter Details Date Type Department Care Team (Late st Contact Info) Description 03/11/2023 Abstract [facility] MEDICINE [address] [place] [address] Marlen Galindo MD [address] [place] [address] Social History Tobacco Use Types Packs/Day Years [...] Upcoming Encounters Date Type Department Care Team ([facility] st Contact Info) Description 07/19/2024 1:00 PM EST Nurse Only [facility] MED & PEDS [address] [place] [address] 10/10/2024 9:45 AM EDT Office Visit [facility] MED [facility] PED[facility] [address] [place] [address] Marlen Galindo MD [address] [place] [address] documented as of this encounter Procedures Procedure [...] documented as of this encounter Care Teams Skid Man Relationship Specialty Start Date End Date Marlen Galindo MD [address] [place] [address] PCP - General Internal Medicine 12/23/14 documented as of this encounter
--- OUTSIDE RECORDS SUMMARY | 2024-07-09 12:01 | XMS_ITS | Encounter Summary ---
Author Organization [facility] Address [address] [place] [address] [address], [place] [address] Care Team Providers Care Manager Benefit Name Role Phone Marlen Galindo MD Primary Care Provider +1- [phone] Encounter Details Date Type Department Care Team (Latest Contact Info) Description 03/19/2021 Abstract [facility] CONVERSIONS Dental, Provider, DDS Social History [...] Care Team ( st Contact Info) Description 07/19/2024 1:00 PM EST Nurse Only [facility] MED & PEDS [address] [place] [address] 10/10/2024 9:45 AM EDT Office Visit [facility] MED & PEDS [address] [place] [address] Marlen Galindo MD [address] [place] [address] documented as of this encounter Visit Diagnoses Not on filedocumented in this encounter Care Teams Manager Benefit Relationship Specialty Start Date End Date Marlen Galindo MD [address] [place] [address] PCP - General Internal Medicine 12/23/14 documented as of this encounter
--- OUTSIDE RECORDS SUMMARY | 2024-07-09 12:01 | XMS_ITS | Encounter Summary ---
Author Organization [employer] Address [address] [facility] 7t [place] [address] Care Team Providers Care Rug Sizer Name Role Phone Marlen Galindo MD Primary Care Provider +1- [phone] Reason for Visit * Reason Comments Immunizations Encounter Details Date Type Department Care Team ([facility] st Contact Info) Description 06/20/2024 3:00 PM EST Clinical Support [facility] MED & PEDS [address] [place] [address] Kassi Sabillon, YOUSIF [address] [place] [address] Social History Tobacco Use Types Packs/Day Years [...] AM EDT documented as of this encounter Progress Notes * Kassi Sabillon RN - 06/20/2024 3:00 PM EST S: Pt here for Hep B #1 immunization. Pt denies allergies. O: Pt states she feels well with no complaints today. A: Pt tolerated IM injection to left deltoid well. No adverse reaction noted. VIS given to pt. P: Pt advised to monitor for adverse reaction. Pt scheduled for Hep B #2 and provided with appt reminder. documented in this encounter Plan of Treatment Upcoming Encounters Date Type Department Care Team (Late st Contact Info) Description 07/19/2024 1:00 PM EST Nurse Only [facility] MED & PEDS [address] [place] [address] 10/10/2024 9:45 AM EDT Office Visit [facility] MED & PEDS [address] [place] [address] Marlen Galindo MD [address] [place] [address] documented as of this encounter Visit Diagnoses Not on filedocumented in this encounter Additional Health Concerns Assessment Noted Time PHQ-9 Depression Total Score: 4 07/07/19 24 2:01 PM EST documented as of this encounter Care Teams Rug Sizer Relationship Specialty Start Date End Date Marlen Galindo MD [address] [place] [address] PCP - General Internal Medicine 12/23/14 documented as of this encounter
--- OUTSIDE RECORDS SUMMARY | 2024-07-09 12:01 | XMS_ITS | Encounter Summary ---
Author Organization [employer] Address [address] [place] [address] Care Team Providers Care Safety Director Name Role Phone Marlen Galindo MD Primary Care Provider [phone] Reason for Referral * Consultation (Routine) - Pending Review Specialty Diagnoses / Procedures Referred By José swann Referred To Contact Orthopaedic Surgery Diagnoses Bilateral carpal tunnel syndrome Marlen Galindo MD [address] [place] [address] Phone: tel: fax: Referral ID Status Reason Start Date Expiration Date Visits Requested Visits Authorized [id number] Pending Review Specialty Services Required 07/09/2024 07/09/2025 1 1 * Consultation (Routine) - Pending Review Specialty Diagnoses / Procedures Referred By José swann Referred To Contact Physical Therapy Diagnoses Low back pain at multiple sites Marlen Galindo MD [address] [place] [address] Phone: tel: fax: Referral ID Status Reason Start Date Expiration Date Visits Requested Visits Authorized [id number] Pending Review Specialty Services Required 07/09/2024 07/09/2025 1 1 Reason for Visit * Reason Comments extended office visit Back Pain Encounter Details Date Type Department Care Team (Latest Contact Info) Description 07/09/2024 9:30 AM EST Office Visit [facility] [address] [place] [address] Marlen Galindo MD [address] [place] [address] Vitamin D deficiency (Primary Dx); Low back pain at multiple sites; Chronic midline low back pain without sciatica; Bilateral carpal tunnel syndrome; Congenital coloboma of iris; Irritable bowel syndrome with constipation; Venous insufficiency Social History Tobacco Use Types Packs/Day Years Used Date Smoking Tobacco: Never Passive Smoke Exposure: Never Smokeless Tobacco: Never Alcohol Answer Date Recorded Q1: How often do you have a drink containing alc ohol? 2 07/09/2024 Q2: How many drinks containi ng alcohol do you have on a typical day when you are drinking? 0 07/09/2024 Q3: How often do you have six or more drinks on one occasion? 2 07/09/2024 Depression Answer Date Recorded Patient Health Questionnaire-9 Score 4 07/09/2024 Patient Health Questionnaire-9 Score 4 07/09/2024 Last PHQ-9: Questionnaire Data Not on file 0 07/09/2024 Housing Stability Answer Date Recorded What is [...] Date Recorded Patient Health Questionnaire-2 Score 0 07/09/2024 Internet Access Answer Date Recorded Internet Access Q1 Yes 06/25/2024 Internet Access Q2 Not on file 06/25/2024 Comments Unknown Sex and Gender Information Value Date Recorded Sex Assigned at Female 03/15/2022 10:17 AM EDT Legal Sex Female 10:17 AM EDT Gender Identity Female 03/15/2022 10:17 AM EDT Sexual Orientation Straight 03/15/2022 10 :17 AM EDT documented as of this encounter Last Filed Vital Signs Vital Sign Reading Time Taken Comments Blood Pressure 125/78 07/09/2024 9:50 AM EST Pulse 75 07/09/2024 9:50 AM EST Temperature 36.5 ??C (97.7 ??F) 07/09/2024 9:50 AM ES T Respiratory Rate 20 07/09/2024 9:50 AM EST Oxygen Saturation 99% 07/09/2024 9:50 AM EST Inhaled Oxygen Concentration - - Weight 68.5 kg (151 lb) 07/09/2024 9:50 AM EST Height 160 cm (5' 3 ) 07/09/2024 9:50 AM EST Body Mass Index 26.75 07/09/2024 9:50 AM EST documented in this encounter Plan of Treatment Upcoming Encounters Date Type Department Care Team (Late st Contact Info) Description 07/19/2024 1:00 PM EST Nurse Only [facility]EDS [address] [place] [address] 10/10/2024 9:45 AM EDT Office Visit [facility] [address] [place] [address] Marlen Galindo MD [address] [place] [address] Scheduled Orders Name Type Priority Associated Diagnoses Orde r Schedule XR Lumbar Spine Complete 4+ Views Imaging Routine Low back pain at multiple sites Expected: 07/09/2024, Expires: 07/09/2025 CBC auto differential Lab Routine Congenital coloboma of iris Expected: 07/09/2024 (Approximate), Expires: 07/09/2025 Comprehensive Metabolic Panel Lab Routine Congenital coloboma of iris Expected: 07/09/2024 (Approximate), Expires: 07/09/2025 Lipid Panel, Standard Lab Routine Congenital coloboma of iris Expected: 07/09/2024 (Approximate), Expires: 07/09/2025 TSH W/Reflex to FT4 Lab Routine Congenital coloboma of iris Expected: 07/09/2024 (Approximate), Expires: 07/09/2025 Scheduled Referrals Name Type Priority Associated Diagnoses Order Schedule Referral to Physical Therapy Outpatient Referral Routine Low back pain at multiple sites Expected: 07/09/2024 (Approximate), Expires: 07/09/2025 Referral to Orthopaedic Surgery Outpatient Referral Routine Bilateral carpal tunnel syndrome Expected: 07/09/2024 (Approximate), Expires: 07/09/2025 documented as of this encounter Visit Diagnoses Diagnosis Vitamin D deficiency- Primary Low back pain at multiple sites Chronic midline low back pain without sciatica Bilateral carpal tunnel syndrome Carpal tunnel syndrome 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
--- OUTSIDE RECORDS SUMMARY | 2024-07-09 12:01 | XMS_ITS | Data Portability ---
Author Organization [employer] Address [address] [place] [address] Care Team Providers Care News Camera Operator Name Role Phone [facility] Referring Provider [facility] R eferring Provider Assessment No assessment recorded. Plan of Treatment Reminders Order Date Submit Date Provider Last Modified By Organization Details Last Modified Time Details Appointments None record ed. Lab None record ed. Referral None record ed. Procedures None record ed. Surgeries None record ed. Imaging None record ed. Medication Orders None record ed. Patient TargetsNo targets recorded. Patient InstructionsNo instructions recorded. Reason for Referral None Reported. Medical Equipment None Reported. Medications Name Sig Start Date Stop Date Status Note LastModified by Organization Details LastModified Time amoxicillin 500 mg tablet TAKE 1 TABLET BY MOUTH EVERY 8 HOURS active Not Available Not Available No t Available lorazepam 0.5 mg tablet TAKE 1 TABLET BY MOUTH 30 MINUTES PRIOR TO THE FLIGHT. active Not Available Not Available No t Available scopolamine 1 mg over 3 days transdermal patch active Not Available Not Available Not Available chlorhexidine gluconate 0.12 % mouthwash active Not Available Not Available Not Available cholecalciferol (vitamin D3) 50 mcg (2,000 unit) capsule TAKE 1 CAPSULE BY MOUTH DAILY active Not Available Not Available No t Available Allergy Relief (fexofenadine) 180 mg tablet TAKE 1 TABLET BY MOUTH DAILY active Not Available Not Available No t Available Vitals Date Recorded Heart rate Oxygen saturation Oxygen saturation in Arterial blood by Pulse oximetry Respiratory rate Body temperature Systolic blood pressure Diastolic blood pressure Provider Name and Address Organization Details Last Updated DateTime 3 75 /min 97 % 97 % 20 /min 98 [degF] 122 mm[Hg] 82 mm[Hg] Not Available [employer] [facility] [employer] 3 16:01:38 Date Recorded Oxygen saturation Oxygen saturation in Arterial blood by Pulse oximetry Heart rate Respiratory rate Systolic blood pressure Diastolic blood pressure Provider Name and Address Organization Details Last Updated DateTime 95.98 % 95.98 % 89 /min 17.99 /min 117 mm[Hg] 79 mm[Hg] Oxana Arce MD [address] [place] [address],[address], [place], [address] JOSIAH Richter [facility] 22:12:38 Social History None recorded. Functional Status None recorded. Mental Status None recorded. Family History Nothing Reported. Medical History No medical history recorded. Gynecological HistoryNo gynecological history recorded. Obstetrics History GPAL:G 0 P 0 0 0 0 Past Encounters Encounter ID Performer Location Encounter Start Date Encounter Closed Date Diagnosis/Indication Diagnosis SNOMED-CT Code Diagnosis ICD10 Code Diagnosis Note [id number] Oxana Arce MD [address] [address] 08/21/2021 19:59:08 01/06/2022 15:03:51 Edema of lower extremity 592441707 R60.0 46 year old female with 1 day of left lower extremity edema and pain. Differenti al includes strained/t orn gastroc muscle vs DVT. Unable to rule out DVT without ultrasound - recommende d visit to ER for lower extremity doppler. [id number] Mekhi Monique MD [address] [address] 10/19/2022 16:01:36 10/20/2022 10:40:55 Pain of left shoulder blade [id number] M25.512 This 47-year-ol d female developed sharp pleuritic pain in her left scapula over the past several days. The pain is worse with movement. I suspect that the pain is musculoske letal and I recommende d ice packs and Tylenol as needed for pain. She will follow-up with her PCP. The patient agreed with this plan. Health Concerns Section Related Observation LastModified by Organization Detai ls LastModified Time None Recorded Concern Status LastModified by Organization Details LastModified Time None Recorded Advance Directives Directive None Recorded Payers Encounter Date Sequence Insurance Name Policy Number Policy De Santiago Covered Member ID De Santiago Member ID Guarantor Name 08/21/2021 1 [facility] - DOS PRIOR TO 2022 - DUAL ELIGIBLE (MEDICARE REPLACEMENT/ADV ANTAGE - HMO) Nivia Albarado [id number] Nivia Albarado 10/19/2022 1 [facility] - DOS ON OR AFTER 2022 - DUAL ELIGIBLE - CUSTODIAL OPTIONS AND ONE CARE (MEDICARE REPLACEMENT/ADV ANTAGE - HMO) Nivia Albarado [id number] Nivia Albarado Notes Date Note Type Note Provider Name and Address Organization Details Recorded Time 08/21/2021 text/html Request notes: PMH: Venous Insufficiency and Varicose Veins Patient reports having left lower extremity pain and mild swelling below the knee. No areas of redness, rash bruising. Not warm to touch. Pain with ambulation. No SOB or CP. End of day call for office. Requires evaluation today. Tier Truck Driver notes: Sent to evaluate pt with LLE pain/swelling. Arrived on scene and found pt with slightly limping gait. Pt is awake and alert, airway open and patent, breathing regular. Skin is pink, warm, and dry. Pt states that last night she had sudden onset of posterior LLE pain. Pt states that the sudden onset of pain felt like a muscle cramp at first but there was no spasm and felt unlike cramps she's had in the past. No hx of blood clots in past. This AM, pt woke up and found that there was mild swelling to the calf. She applied her normal compression stockings and found that swelling decreased but is still having pain. +point calf tenderness. No erythema, abnormal warm, or signs of infection. Pain can be provoked by walking or flexing, extension is not painful. +pedal pulses, +sensory, +motion. Pt states that this afternoon she developed tingling sensation from affected area and extended distally. Consulted [facility] who recommended that pt present to ER to r/o DVT and further workup. Pt agreed and [facility] be [facility] my [facility]. HR 89, 117/79, 96% room air. RR 18 Oxana Arce MD [address] [facility],[address], [place], [address], [place] [employer] 08/21/2021 22:13:32 10/19/2022 text/html HPI: PMH: Legal Blindness Call to Nivia Albarado reports having chest pain since this morning on left side. Radiates to back. More pain with deep breath. No diaphoresis. No Pt advised of disposition, declines ER. Wants instED eval. Bp at home 116/77 HR 69. No hx of HTN. ................... ................... ................... ................... ................... ................... ................... ........ CRC Nursing Assessment: Comments: CRC RN did not require any additional information to process this visit. Mekhi Monique MD [address] [place] [address],[address] [place] [address], [place], [address], [employer] 10/19/2022 16:06:20 OBGyn Episode No OBEpisode recorded.
--- OUTSIDE RECORDS SUMMARY | 2024-07-09 12:01 | XMS_ITS | Encounter Summary ---
Author Organization [employer] Address [address] [facility] 7 [place] [address] Care Team Providers Care Price Economist Name Role Phone Marlen Galindo MD Primary Care Provider [phone] Reason for Visit * Reason Comments Pre-visit Planning SDOH screening negat chantal and Tobacco screening negative Encounter Details Date Type Department Care Team (Late st Contact Info) Description 06/25/2024 Patient Outreach [facility] [address] [place] [address] Marlen Galindo MD [address] [place] [address] Pre-visit Planning (SDOH screening negative and Tobacco screening negative) Social History Tobacco Use Types Packs/Day Years [...] Recorded Patient Health Questionnaire-2 Score 0 07/07/2023 Internet Access Answer Date Recorded Internet Access Q1 Yes 06/25/2024 Internet Access Q2 Not on file 06/25/2024 Comments Unknown Sex and Gender Information Value Date Recorded Sex Assigned at Female 03/15/2022 10:17 AM EDT Legal Sex Female 10:17 AM EDT Gender Identity Female 03/15/2022 10:17 AM EDT Sexual Orientation Straight 03/15/2022 10 :17 AM EDT documented as of this encounter Progress Notes * Roseline Fiore - 06/25/2024 3:34 PM EST CC Roseline hill successful outbound call to patient for pre-visit planning. Patient name and confirmed. Patient confirms appt date and time, and has transportation arrangements. Biggest concern for appointment at this time is no concerns. Patient advised to bring to appointment a photo id and insurance card. Appropriate screenings completed in anticipation of appointment. documented in this encounter Plan of Treatment Upcoming Encounters Date Type Department Care Team ([facility] Contact Info) Description 07/19/2024 1:00 PM EST Nurse Only [facility] [address] [place] [address] 10/10/2024 9:45 AM EDT Office Visit [facility] [address] [place] [address] Marlen Galindo MD [address] [place] [address] documented as of this encounter Visit Diagnoses Not on filedocumented in this encounter Additional Health Concerns Assessment Noted Time PHQ-9 Depression Total Score: 4 07/07/19 24 2:01 PM EST documented as of this encounter Care Teams Price Economist Relationship Specialty Start Date End Date Marlen Galindo MD [address] [place] [address] PCP - General Internal Medicine 12/23/14 documented as of this encounter
--- OUTSIDE RECORDS SUMMARY | 2024-07-09 12:01 | XMS_ITS | Encounter Summary ---
Author Organization [employer] Address [address] [facility] [address] [facility] [address] [place] [address] Care Team Providers Care Research Asst Name Role Phone Marlen Galindo MD Primary Care Provider [phone] Encounter Details Date Type Department Care Team (Latest Contact Info) Description 07/09/2024 Travel Social History Tobacco Use Types Packs/Day Years [...] [facility] [address] [place] [address] 10/10/2024 9:45 AM EDT Office Visit [facility] [address] [place] [address] Marlen Galindo MD [address] [place] [address] documented as of this encounter Visit Diagnoses Not on filedocumented in this encounter Additional Health Concerns Assessment Noted Time PHQ-9 Depression Total Score: 4 07/09/19 25 9:52 AM EST documented as of this encounter Care Teams Research Asst Relationship Specialty Start Date End Date Marlen Galindo MD [address] [place] [address] PCP - General Internal Medicine 12/23/14 documented as of this encounter
--- OUTSIDE RECORDS SUMMARY | 2024-07-09 12:01 | XMS_ITS | Clinical Summary ---
Author Organization [facility] Address [address] [place] [address] Phone Care Team Providers Care Salon Leader Name Role Phone Marlen Galindo MD Primary Care Provider [phone] Social History Tobacco Use Types Packs/Day Years Used Date Smoking Tobacco: Never Assessed Comments Unknown Sex and Gender Information Value Date Recorded Sex Assigned at Female 04/02/2024 12:18 PM EST Legal Sex Female 10:45 PM EST Gender Identity Female 04/02/2024 12:18 PM EST Sexual Orientation Straight 04/02/2024 12 :18 PM EST Plan of Treatment Health Maintenance Due Date [...] patient's age to complete this topic Meningococcal B Vacine Aged Out No lo nger eligible based on patient's age to complete [...] on patient's age to complete this topic Insurance MEDICARE Member Subscriber Plan / Payer (Ef fective 2018-Present) Name:Nivia Carr Relation to Subscriber:Self Name:Nivia Carr Payer ID:[id number] Group ID:[id number] Type:Not on file Address: [place] [address] [address] [place] [phone] Care Teams Salon Leader Relationship Specialty Start Date End Date Marlen Galindo MD [address] [place] [id number] PCP - General Internal Medicine 04/02/24
--- OUTSIDE RECORDS SUMMARY | 2024-07-09 12:01 | XMS_ITS | Encounter Summary ---
Author Organization [employer] Address [address] [facility] [address] [address] Care Team Providers Care Clinical Haematologist Name Role Phone Marlen Galindo MD Primary Care Provider [phone] Reason for Referral * Consultation (Routine) - Authorized Specialty Diagnoses / Procedures Referred By Contmelissa t Referred To Contact Allergy Diagnoses Seasonal allergies Marlen Galindo MD [address] [place] [address] Phone: tel: fax: Nando Wren MD [address] [place] [address] [address] [place] [address] Phone: tel: fax: Referral ID Status Reason Start Date Expiration Date Visits Requested Visits Authorized [id number] Authorized Specialty Services Required 04/04/2025 1 1 Encounter Details Date Type Department Care Team (Late st Contact Info) Description 04/04/2024 Orders Only [facility] PEDS [address] [place] [address] Marlen Galindo MD [address] [place] [address] Seasonal allergies (Primary Dx) Social History Tobacco [...] Upcoming Encounters Date Type Department Care Team ([facility] st Contact Info) Description 07/19/2024 1:00 PM EST Nurse Only [facility] MED & PEDS [address] [place] [address] 10/10/2024 9:45 AM EDT Office Visit [facility] MED & PEDS [address] [place] [address] Marlen Galindo MD [address] [place] [address] Scheduled Referrals Name Type Priority Associated Diagnoses [...] documented as of this encounter Care Teams Clinical Haematologist Relationship Specialty Start Date End Date Marlen Galindo MD [address] [place] [address] PCP - General Internal Medicine 12/23/14 documented as of this encounter
--- OUTSIDE RECORDS SUMMARY | 2024-07-09 12:01 | XMS_ITS | Clinical Summary ---
Author Organization [employer] Address [address] [facility] 7t [place] [address] Care Team Providers Care Home Companion Name Role Phone Marlen Galindo MD Primary Care Provider [phone] Allergies No known active allergies Medications fexofenadine [...] Active Problems Problem Noted Date Diagnosed Date Chronic midline low back pain without sciatica 0 07/09/2024 Bilateral carpal tunnel syndrome 07/09/2024 Congenital coloboma of iris 07/09/2024 Irritable bowel syndrome with constipation 07/09 Venous insufficiency 07/09/2024 Vitamin D deficiency 2022 Legal blindness [place] 02/07/2014 Encounters Date Type Department Care Team Description 07/09/2024 9:30 AM EST Office Visit [facility] [address] [place], [place] [id number] Marlen Galindo MD Vitamin D deficiency (Primary Dx); Low back pain at multiple sites; Chronic midline low back pain without sciatica; Bilateral carpal tunnel syndrome; Congenital coloboma of iris; Irritable bowel syndrome with constipation; Venous insufficiency 07/09/2024 Travel 07/06/2024 Telephone [facility] [address] [place] [address] Marlen Galindo MD CHART PREP 06/25/2024 Patient Outreach [facility] [address] [place] [address] Marlen Galindo MD Pre-visit Planning (SDOH screening negative and Tobacco screening negative) 06/20/2024 3:00 PM EST Clinical Support [facility] [address] [place] [address] Kassi Sabillon RN 06/20/2024 Travel 06/12/2024 Telephone [facility] [address] [place] [address] Marlen Galindo MD from Last 3 Months Immunizations Name Administration Dates Next Due Hep B, adult 06/20/2024 Influenza injectable quadriv alent IIV4 with preservative [...] Tobacco: Never Tobacco Cessation:Counseling Given: Not Answered Alcohol Answer Date Recorded Q1: How often [...] Mass Index 26.75 07/09/2024 9:50 AM EST Plan of Treatment Upcoming Encounters Date Type Department Care Team ([facility] st Contact Info) Description 07/19/2024 1:00 PM EST Nurse Only [facility] [address] [place] [address] 10/10/2024 9:45 AM EDT Office Visit [facility] [address], [place] [phone] Marlen Galindo MD [address] [place] [address] Health Maintenance Due Date Last Done Comments CT Colonography 1976 FIT DNA/Cologuard 1976 FIT 1976 FOBT 1976 Sigmoidoscopy 1976 Family Planning (PISQ) 1991 Pap Smear 1997 Cervical Cancer Screening 2006 HPV/Cotest 2006 Mammogram 03/30/2024 03/30/2022 Hepatitis B Vaccines (2 of 3 - 19+ 3-dose series) 07/18/2024 06/20/2024 Alcohol/Substance Use Screening 07/09/2025 07/09/2024 Depression Screening 07/09/2025 07/09/2024, 07/09/19 25 HIV Screening 07/09/2025 Postponed from 1976 (Patient Refused) SDOH Screening 07/09/2025 07/09/2024 Tobacco Screening 07/09/2025 07/09/2024 Colonoscopy 01/13/2026 01/13/2021 Colorectal Cancer Screening 01/13/2026 [...] PM EST Encounter for occupational health assessment MAMMOGRAPHY Routine 03/30/2022 ZZZ HISTORICAL HEPATITIS C AB W/REFL TO HCV RNA, QN, PCR Routine 03/26/2022 9:10 AM EST HM COLONOSCOPY Routine 01/13/2021 from Last 3 Months or Most Recently Relevant to Health Maintenance Results * T-SPOT??.TB (06/18/2024 4:00 PM EST) T Spot TB Negative Negative [facility] Comment:A negative test resu lt [...] as aquantitative test. TS PANEL A 0 [facility] TS PANEL B 1 [facility] Negative Control Passed [facility] Positive Control Passed [facility] Comment:For additional infor matshankar, please refer tohttp://education.[employer] On The Go/faq/IUP105(This link is being provided for informational/educational purposes only.)THIS TEST WAS PERFORMED AT:[employer] [id number] [place] [id number] CLEMENTE MD,PHD 06/18/2024 4:00 PM EST 06/18/2024 5:39 PM EST Marlen Galindo MD LAB BLOOD ORDERABLES Final Result [facility] [address] [place] [phone] * Mammography (03/30/2022) Pathologist [facility] Mammogram Bi-rads 2 Anatomical Region Laterality Modality Other Historical Provider HEALTH MAINTENANCE Final Result * HEPATITIS C AB W/REFL TO HCV RNA, QN, PCR (03/26/2022 9:10 AM EST) Pathologist [facility] HEPATITIS C ANTIBODY NON-REACTI VE NON-REACT [facility] INDEX 0.04 <1.00 [facility] Comment: ?? HCV antibody was non-reactive. There is no laboratory ?? evidence of HCV infection. ?? In most cases, no further action is required. However, if recent HCV exposure is suspected, a test for HCV RNA (test code 36449) is suggested. ?? For additional information please refer to http://[employer] On [employer] Go/faq/NOT52o4 (This link is being provided for informational/ educational purposes only.) ?? 03/26/2022 9:10 AM EST Marlen Galindo MD HISTORICAL/NON ORDERABLE LA BS Final Result [facility] * Colonoscopy (01/13/2021) Colonoscopy Normal Normal Narrative Xavier Damonba - 01/13/2021 Recommended 5 year follow up Historical Provider HEALTH MAINTENANCE Final Result from Last 3 Months or Most Recently Relevant to Health Maintenance [place] [place] [address] - [employer] Care Teams Home Companion Relationship Specialty Start Date End Date Marlen Galindo MD [address] [place] [id number] PCP - General Internal Medicine 12/23/14
--- OUTSIDE RECORDS SUMMARY | 2024-07-09 12:01 | XMS_ITS | Encounter Summary ---
Author Organization [employer] Address [address] [facility] [address] [place] [address] Care Team Providers Care Drying Machine Operator Name Role Phone Marlen Galindo MD Primary Care Provider [phone] Encounter Details Date Type Department Care Team (Latest Contact Info) Description 06/20/2024 Travel Social History Tobacco Use Types Packs/Day [...] Description 07/19/2024 1:00 PM EST Nurse Only [facility] [address] [place] [address] 10/10/2024 9:45 AM EDT Office Visit [facility] [address] [place] [address] Marlen Galindo MD [address] [place] [address] documented as of this encounter Visit Diagnoses Not on filedocumented in this encounter Additional Health Concerns Assessment Noted Time PHQ-9 Depression Total Score: 4 07/07/19 24 2:01 PM EST documented as of this encounter Care Teams Drying Machine Operator Relationship Specialty Start Date End Date Marlen Galindo MD [address] [place] [address] PCP - General Internal Medicine 12/23/14 documented as of this encounter
--- OUTSIDE RECORDS SUMMARY | 2024-07-09 12:01 | XMS_ITS | Encounter Summary ---
Author Organization [employer] Address 75 [facility] 7 [place] [address] Care Team Providers Care Replenishment Buyer Name Role Phone Marlen Galindo MD Primary Care Provider [phone] Reason for Visit * Reason Onset Date Comments CHART PREP 07/06/2024 Encounter Details Date Type Department Care Team ([facility] Contact Info) Description 07/06/2024 Telephone [facility] PEDS [address] [place] [address] Marlen Galindo MD [address] [place] [address] CHART PREP Social History Tobacco Use Types Packs/Day Years [...] encounter Miscellaneous Notes * Telephone Encounter - Stalin Joyce [place] - 07/06/2024 1:49 PM EST Chart Prep Labs: done Images: done Vaccines due: yes Referrals: complete Screenings: pap smear Overdue care gaps: Sbirt, SDOH, PHQ-9 documented in this encounter Plan of Treatment Upcoming Encounters Date Type Department Care Team ([facility] Contact Info) Description 07/19/2024 1:00 PM EST Nurse Only [facility] P[facility] [address] [place] [address] 10/10/2024 9:45 AM EDT Office Visit [facility] [address] [place] [address] Marlen Galindo MD [address] [place] [address] documented as of this encounter Visit Diagnoses Not on filedocumented in this encounter Additional Health Concerns Assessment Noted Time PHQ-9 Depression Total Score: 4 07/07/19 24 2:01 PM EST documented as of this encounter Care Teams Replenishment Buyer Relationship Specialty Start Date End Date Marlen Galindo MD [address] [place] [address] PCP - General Internal Medicine 12/23/14 documented as of this encounter
[2024-07-09 14:46] LABS: MANUAL DIFF FLAG NO
[2024-07-09 14:50] LABS: Basophils Absolute Auto 0.1 X10*3/uL (0.0-0.2); Basophils Percent Auto 1.1 % (0-2); Eosinophils Absolute Auto 0.1 X10*3/uL (0.0-0.4); Eosinophils Percent Auto 2.3 % (0-4); Hematocrit 37.7 % (37.0-47.0); Hemoglobin 12.4 g/dl (12.0-16.0); Imm Gran Abs Auto 0.02 X10*3/uL (0.00-0.03); Imm Gran Pct Auto 0.4 % (0.0-0.4); Lymphocytes Absolute Auto 1.5 X10*3/uL (1.2-4.9); Lymphocytes Percent Auto 27.3 % (20-40); Mean Corpuscular HGB Conc 32.9 g/dl (31.0-35.0); Mean Corpuscular Hemoglobin 29.3 pg (27.0-33.0); Mean Corpuscular Volume 89.1 fL (80.0-98.0); Monocytes Absolute Auto 0.6 X10*3/uL (0.1-1.2); Monocytes Percent Auto 10.8 % (2-11); Neutrophils Absolute Auto 3.3 x10*3/uL (2.0-8.3); Neutrophils Percent Auto 58.1 % (45-73); Platelet Count 346 X10*3/uL (160-400); Red Blood Count 4.23 X10*6/uL (4.20-5.50); Red Cell Distribution Width 13.7 % (11.0-16.0); White Blood Count 5.7 X10*3/uL (4.8-10.8)
[2024-07-09 15:00] LABS: Alanine Aminotransferase 21 U/L (0-31); Alkaline Phosphatase 79 U/L (39-117); Bilirubin Total 0.3 mg/dL (0.0-1.0); Blood Urea Nitrogen 13 mg/dL (9-16); Calcium 9.1 mg/dL (8.4-10.2); Carbon Dioxide 26 mmol/L (22-29); Chloride 109 mmol/L (96-108); Cholesterol 175 mg/dL (<200); Estimated Glomerular Filt Rate > 60; Glucose Random 89 mg/dL (60-115); HDL Cholesterol 48 mg/dL (>40); LDL Cholesterol Calculated 107 mg/dL (<100); Potassium 3.7 mmol/L (3.3-5.1); Sodium 141 mmol/L (135-145); Total Protein 7.6 g/dL (6.5-8.0); Triglycerides 103 mg/dL (<150)
[2024-07-09 15:02] LABS: Anion Gap 10 (12-20)
[2024-07-09 15:30] LABS: TSH reflex Free T4 1.62 uIU/mL (0.32-4.0)
[2024-07-09 20:12] LABS: Aspartate Amino Transferase 24 U/L (5-31)
== END 2024-07-09 10:38 | disposition home or self-care (01) ==
LOC: HO.CHCLDS 10:37
PROVIDERS: Visit Provider Internal Medicine
DX: Q13.0 Coloboma of iris (principal)
CPT/HCPCS: 36415; 80053; 80061; 84443; 85025

== ENCOUNTER 2025-02-21 13:35 | Outpatient (REF) | payer OTHER, SELFPAY | END 2025-02-21 13:36 | disposition home or self-care (01) | LOC: HO.CHCLNP 13:35 | PROVIDERS: Visit Provider Internal Medicine | DX: K21.9 Gastro-esophageal reflux disease without esophagitis (principal) | CPT/HCPCS: 87338 ==

== ENCOUNTER 2025-05-02 11:51 | Outpatient (REF) | payer OTHER, SELFPAY ==
--- OUTSIDE RECORDS SUMMARY | 2025-05-02 11:15 | XMS_ITS | Encounter Summary ---
Author Organization [employer] Address [address] [facility] 7 [place] [address] Care Team Providers Care Sergeant Missile Crewman Name Role Phone Marlen Galindo MD Primary Care Provider [phone] Reason for Visit * Reason Comments Follow-up Encounter Details Date Type Department Care Team ([facility] Contact Info) Description 05/02/2025 11:15 AM EST Office Visit [facility] PEDS [address] [place] [address] Marlen Galindo MD [address] [place] [address] Plantar fasciitis of left foot (Primary Dx); Irritable bowel syndrome with constipation; Weight gain Social History Tobacco Use Types Packs/Day Years [...] Sign Reading Time Taken Comments Blood Pressure 130/76 05/02/2025 11:20 AM EST Pulse 76 05/02/2025 11:20 AM EST Temperature 36.7 C (98.1 F) 05/02/2025 11:20 AM EST Respiratory Rate 20 05/02/2025 11:20 AM EST Oxygen Saturation 98% 05/02/2025 11:20 AM EST Inhaled Oxygen Concentration - - Weight 70.3 kg (155 lb) 05/02/2025 11:20 AM EST Height 160 cm (5' 3 ) 05/02/2025 11:20 AM EST Body Mass Index 27.46 05/02/2025 11:20 AM EST documented in this encounter Progress Notes * Marlen Galindo MD - 05/02/2025 11:15 AM EST SUBJECTIVE Nivia Albarado is a 49 y.o. female who presents for Follow-up. Nivia Jesse Albarado, 49-year-old female - History of IBS, started Linzess prior to previous visit, completed low FODMAP diet, reports improvement with Linzess - History of plantar fasciitis, reports foot pain on plantar aspect, pain occurs mostly when walking, started Celebrex previously, reports less side effects compared to ibuprofen, pain slightly improved, uses Celebrex cautiously - Reports feeling of weight gain, weight increased from 148 lbs in September 2022 to 156 lbs in December 2024 - Denies significant changes in eating habits, sometimes skips breakfast, prefers starchy foods like cream of wheat, occasionally overeats - No reported increase in appetite Problem List[1] Allergies[2] Medications Ordered Prior to Encounter[3] Review of Systems Constitutional: Positive for unexpected weight change. Negative for appetite change, chills and diaphoresis. Eyes: Negative for photophobia, pain and redness. Respiratory: Negative for cough, choking and shortness of breath. Cardiovascular: Negative for palpitations and leg swelling. Musculoskeletal: Left foot pain Skin: Negative for pallor, rash and wound. OBJECTIVE Vitals: 05/02/25 1120 BP: 130/76 BP Location: Left arm Patient Position: Sitting BP Cuff Size: Adult Pulse: 76 Resp: 20 Temp: 98.1 ??F (36.7 ??C) TempSrc: Oral SpO2: 98% Weight: 155 lb (70.3 kg) Height: 5' 3 (1.6 m) Physical Exam Constitutional: General: She is not in acute distress. Appearance: Normal appearance. She is not ill-appearing, toxic-appearing or diaphoretic. Cardiovascular: Rate and Rhythm: Normal rate. Pulmonary: Effort: Pulmonary effort is normal. Neurological: General: No focal deficit present. Mental Status: She is alert. Assessment/Plan Assessment/Plan Diagnoses and all orders for this visit: Plantar fasciitis of left foot Irritable bowel syndrome with constipation Weight gain - TSH W/Reflex to FT4; Future Plantar fasciitis of left foot: - Plantar fasciitis with improvement noted on Celebrex; mild residual symptoms persist. - Continue Celebrex, take once daily after breakfast. Continue foot exercises. If symptoms persist after 4 weeks of treatment, referral to podiatry for possible injection. Irritable bowel syndrome with constipation: - Improvement with Linzess and completion of low FODMAP diet. - Continue current regimen with Linzess. Monitor dietary triggers, including starchy foods such as cream of wheat; advised to decrease frequency to once daily. Weight gain: - Gradual weight gain observed over past two years; no significant change in eating habits reported. Possible thyroid dysfunction to be ruled out. - Ordered thyroid function test (TSH) for evaluation. Will review results and follow up by phone. This note was drafted using Ambient (AI) technology. The patient/patient's guardian has been informed and has consented to the use of this technology: Yes [1] Patient Active Problem List Diagnosis Legal blindness [place] Vitamin D deficiency Chronic midline low back pain without sciatica Bilateral carpal tunnel syndrome Congenital coloboma of iris Irritable bowel syndrome with constipation Venous insufficiency [2] No Known Allergies [3] Current Outpatient Medications on File Prior to Visit Medication Sig Dispense Refill cholecalciferol VITAMIN D (Vitamin D-3) 50 MCG (1999) capsule Take 1 capsule (50 mcg) by mouth Once per day. 30 capsule 11 fexofenadine (Allergy Relief) 180 MG tablet Take 1 tablet (180 mg) by mouth Once per day. 30 hydrocortisone 2.5 % cream Apply topically 2 times daily. 20 g 1 linaCLOtide (Linzess) 72 MCG capsule Take 1 capsule (72 mcg) by mouth before breakfast. Do not crush or chew. 30 capsule 11 No current facility-administered medications on file prior to visit. documented in this encounter Plan of Treatment Scheduled Orders Name Type Priority Associated Diagnoses Orde r Schedule TSH W/Reflex to FT4 Lab Routine Weight gain Expected: 05/02/2025 (Approximate), Expires: 05/02/2026 documented as of this encounter Visit Diagnoses Diagnosis Plantar fasciitis of left foot- Primary Irritable bowel syndrome with constipation Irritable bowel syndrome Weight gain Other symptoms concerning nutrition, metabolism, and development documented in this encounter Additional Health Concerns Assessment Noted Time PHQ-9 Depression Total Score: 4 07/09/19 25 9:52 AM EST documented as of this encounter Care Teams Sergeant Missile Crewman Relationship Specialty Start Date End Date Marlen Galindo MD [address] [place] [id number] PCP - General Internal Medicine 12/23/14 documented as of this encounter
--- OUTSIDE RECORDS SUMMARY | 2025-05-02 15:44 | XMS_ITS | Encounter Summary ---
Author Organization [employer] Address 75 [facility] 7t [place] [address] Care Team Providers Care Front End Assistant Name Role Phone Marlen Galindo MD Primary Care Provider [phone] Encounter Details Date Type Department Care Team (Late st Contact Info) Description 03/11/2023 Abstract [facility] [address] [place] [address] Marlen Galindo MD [address] [place] [address] Social History Tobacco Use Types Packs/Day Years [...] as of this encounter Plan of Treatment Not on file documented as of this encounter Procedures Procedure Name Priority Date/Time Associated Diagnosis Comments MAMMOGRAPHY Routine 03/30/2022 COLONOSCOPY Routine 01/13/2021 documented in this encounter Results * Mammography (03/30/2022) HM Mammogram Bi-rads 2 Anatomical Region Laterality Modality Other us Historical Provider HEALTH MAINTENANCE Final Result * Colonoscopy (01/13/2021) Colonoscopy Normal Normal Narrative Africa Damon - 01/13/2021 Recommended 5 year follow up us Historical Provider HEALTH MAINTENANCE Final Result documented in this encounter Visit Diagnoses Not on filedocumented in this encounter Additional Health Concerns Assessment Noted Time PHQ-9 Depression Total Score: 1 06/17/19 23 9:39 AM EST documented as of this encounter Care Teams Front End Assistant Relationship Specialty Start Date End Date Marlen Galindo MD [address] [place] [id number] PCP - General Internal Medicine 12/23/14 documented as of this encounter
--- OUTSIDE RECORDS SUMMARY | 2025-05-02 15:44 | XMS_ITS | Encounter Summary ---
Author Organization [employer] Address [address] [facility] [address] [place] [address] Care Team Providers Care Windows Admin Name Role Phone Marlen Galindo MD Primary Care Provider [phone] Encounter Details Date Type Department Care Team ([facility] st Contact Info) Description 09/17/2024 Orders Only [facility] MED & PEDS [address] [place] [address] Provider, MD June Social History Tobacco Use Types Packs/Day Years [...] Procedure Name Priority Date/Time Associated Diagnosis Comments EMG Routine 09/14/2024 9:55 AM EDT documented in this encounter Results * EMG (09/14/2024 9:55 AM EDT) us Historical Provider NEUROLOGY ORDERABLES Barb l Result documented in this encounter Visit Diagnoses Not on filedocumented in this encounter Additional Health Concerns Assessment Noted Time PHQ-9 Depression Total Score: 4 07/09/19 25 9:52 AM EST documented as of this encounter Care Teams Windows Admin Relationship Specialty Start Date End Date Marlen Galindo MD [address] [place] [id number] PCP - General Internal Medicine 12/23/14 documented as of this encounter
--- OUTSIDE RECORDS SUMMARY | 2025-05-02 15:44 | XMS_ITS | Clinical Summary ---
Author Organization [facility] Address [address] [facility] [place] [address] Care Team Providers Care Wire Bender Name Role Phone Skip Hutchinson MD Primary Care Provider [phone] Allergies No known active allergies Medications cholecalciferol -soy isoflavone 2,000-64 unit-mg tablet Activ e cholecalciferol , vitamin D3, (Vitamin D-3) 25 MCG (1000 UT) tablet Take 2,000 Units by mouth in the morning. Active fexofenadine (Sahra) 180 mg tablet Take 180 mg by mouth in the morning. 4 Active ibuprofen 600 mg tablet Take 1 tablet by mouth three times daily. 4 Active lidocaine-prilo maris (Emla) 2.5-2.5 % cream Apply topically bid to affected area 4 Active LORazepam (Ativan) 0.5 mg tablet TAKE 1 TABLET BY MOUTH 30 MINUTES PRIOR TO THE FLIGHT. Active meclizine (Antivert) 25 mg tablet Take 25 mg by mouth if needed in the morning, at noon, and at bedtime. 4 Active dorzolamide-peña oloL (Cosopt) 22.3-6.8 mg/mL ophthalmic solutionIndicat ions:Congenital coloboma of optic nerve Administer 1 drop into the right eye twice daily. 10 mL 1 5 Active brimonidine (AlphaGAN) 0.2 % ophthalmic solutionIndicat ions:Right retinal detachment Administer 1 drop into the right eye twice daily. 10 mL 2 5 Active prednisoLONE acetate (Pred-Forte) 1 % ophthalmic suspensionIndic ations:Congenit al coloboma of optic nerve Administer 1 drop into the left eye twice daily. 10 mL 1 5 Active Active Problems No known active problems Encounters Date Type Department Care Team Description 03/27/2025 Orders Only [facility] [address] [facility] [place] [phone] Peña Rice, RN Congenital coloboma of optic nerve from Last 3 Months Family History Medical History Relation Name Comments Diabetes Father Brennon Molina Heart disease Father Brennon Molina Hypertension Father Brennon Molina Cancer Maternal Grandfather Kiki Bolaños Arthritis Mother Primitiva Jesse Cancer Mother's Brother Song Bolaños Relation Name Status Comments Father Brennon Molina Maternal Grandfather Kiki Bolaños Mother Primgwen Jesse Mother's Brother Song Bolaños Social History Tobacco Use Types Packs/Day Years Used Date Smoking Tobacco: Never Smokeless Tobacco: Never Tobacco Cessation:Counseling Given: Not Answered Alcohol Use Standard Drinks/Week Comments Yes 0 (1 standard drink = 0.6 oz pur e alcohol) Social Comments Unknown Sex and Gender Information Value Date Recorded Sex Assigned at Not on file Legal Sex Female 1:40 AM EST Gender Identity Not on file Sexual Orientation Not on file Plan of Treatment Upcoming Encounters Date Type Department Care Team ([facility] st Contact Info) Description 07/29/2025 10:45 AM EDT Office Visit [facility] [address] [facility] [place] [address] Danna Boateng MD [address] [place] [address] Health Maintenance Due Date Last Done Comments CT Colonography 1976 Colonoscopy 1976 Colorectal Cancer Screening 1976 FIT-DNA 1976 FIT 1976 FOBT 1976 HIV Screening 1976 Lipid Panel 1976 Sigmoidoscopy 1976 MMR Vaccines (1 of 1 - Standard series) 1977 Hepatitis C Screening 1994 Pap Smear 1997 Cervical Cancer Screening 2006 HPV/Cotest 2006 Mammogram 2016 Medicare Annual Wellness (AWV) 11/14/2019 Diabetes Screening 01/14/2023 01/14/2022 Depression Screening 05/16/2024 Hepatitis B Vaccines (3 of 3 - 19+ 3-dose series) 12/18/2024 07/19/2024, 06/20/2024 COVID-19 Vaccine ( season) 2025 02/14/2024, 04/27/2021, 09/15/2020, Additional history exists DTaP/Tdap/Td Vaccines (3 - Td or Tdap) 07/07/2033 07/07/2023, 05/22/2012 Influenza Vaccine Completed 02/21/2025, , 07/07/2023, Additional history exists HIB Vaccines Aged Out No longer eligi ble based on patient's age to complete this topic HPV Vaccines (No Doses Required) Completed Hepatitis A Vaccines Aged Out No long er eligible based on patient's age to complete this topic IPV Vaccines Aged Out No longer eligi ble based on patient's age to complete this topic Meningococcal B Vaccine Aged Out No l onger eligible based on patient's age to complete this topic Meningococcal Vaccine Aged Out No clotilde elvira eligible based on patient's age to complete this topic Pneumococcal Vaccine: Pediatrics (0 to 5 Years) and At-Risk Patients (6 to 49 Years) Aged Out No longer eligible based on patient's age to complete this topic Rotavirus Vaccines Aged Out No longer eligible based on patient's age to complete this topic Insurance [employer] Care Teams Wire Bender Relationship Specialty Start Date End Date Skip Hutchinson MD [address] [place] [address]/[address] [place] [id number] PCP - General 06/19/21
--- OUTSIDE RECORDS SUMMARY | 2025-05-02 15:44 | XMS_ITS | Encounter Summary ---
Author Organization [employer] Address 75 [facility] 7 [place] [address] Care Team Providers Care Audit Reviewer Name Role Phone Marlen Galindo MD Primary Care Provider [phone] Encounter Details Date Type Department Care Team ([facility] st Contact Info) Description 08/27/2024 Orders Only [facility] [address] [place] [address] Provider, MD June Social History Tobacco Use [...] Procedure Name Priority Date/Time Associated Diagnosis Comments HM MAMMOGRAPHY Routine 08/25/2024 9:56 AM EDT documented in this encounter Results * Hm Mammography (08/25/2024 9:56 AM EDT) Anatomical Region Laterality Modality Other us Historical Provider HEALTH MAINTENANCE Final Result documented in this encounter Visit Diagnoses Not on filedocumented in this encounter Additional Health Concerns Assessment Noted Time PHQ-9 Depression Total Score: 4 07/09/19 25 9:52 AM EST documented as of this encounter Care Teams Audit Reviewer Relationship Specialty Start Date End Date Marlen Galindo MD [address] [place] [id number] PCP - General Internal Medicine 12/23/14 documented as of this encounter
--- OUTSIDE RECORDS SUMMARY | 2025-05-02 15:45 | XMS_ITS | Clinical Summary ---
Author Organization [employer] Address [address] [facility] 7t [place] [address] Care Team Providers Care Barrel Tester And Drainer Name Role Phone Marlen Galindo MD Primary Care Provider Allergies No known active allergies Medications fexofenadine (Allergy Relief) 180 MG tabletIndications :Seasonal allergies Take 1 tablet (180 mg) by mouth Once per day. 30 tablet 11 4 Active cholecalciferol VITAMIN D (Vitamin D-3) 50 MCG (1999 UT) capsuleIndication s:Vitamin D deficiency Take 1 capsule (50 mcg) by mouth Once per day. 30 capsule 11 5 Active linaCLOtide (Linzess) 72 MCG capsuleIndication s:Irritable bowel syndrome with constipation Take 1 capsule (72 mcg) by mouth before breakfast. Do not crush or chew. 30 capsule 11 5 03/14/20 26 Active hydrocortisone 2.5 % creamIndications: Skin rash Apply topically 2 times daily. 20 g 1 5 Active celecoxib (CeleBREX) 100 MG capsuleIndication s:Plantar fasciitis of left foot Take 1 capsule (100 mg) by mouth 2 times daily. 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 Irritable bowel syndrome with constipation 07/09 Venous insufficiency 07/09/2024 Vitamin D deficiency 2022 Legal blindness [place] 02/07/2014 Encounters Date Type Department Care Team Description 05/02/2025 11:15 AM EST Office Visit [facility] [address] [facility] [place] [address] Marlen Galindo MD Plantar fasciitis of left foot (Primary Dx); Irritable bowel syndrome with constipation; Weight gain 05/02/2025 Travel 03/14/2025 9:00 AM EDT Telemedicine [facility] [address] [place] [address] Marlen Galindo MD Skin rash (Primary Dx); Irritable bowel syndrome with constipation; Plantar fasciitis of left foot 03/14/2025 Refill [facility] [address] [facility] [place] [address] Marlen Galindo MD Plantar fasciitis of left foot 03/14/2025 Travel 03/13/2025 Telephone [facility] [address] [facility] [place] [address] Marlen Galindo MD chart prep 03/13/2025 Travel 02/27/2025 Telephone [facility] [address] [place] [address] Marlen Galindo MD Appointment Request 02/26/2025 Telephone [facility] [address] [place] [address] Marlen Galindo MD Chart Prep 02/26/2025 Travel 02/24/2025 Results Follow-Up [facility] [address] [facility] [place] [address] Marlen Galindo MD Helicobacter pylori Antigen, EIA, Stool 02/21/2025 1:30 PM EDT Clinical Support [facility] [address] [place] [address] Leslee Medrano RN Encounter for vaccination; Encounter for immunization 02/21/2025 Travel from Last 3 Months Immunizations Immunization Administration Dates Next Due Hep B, adult 07/19/2024,06/20/2024 Influenza injectable quadriv alent IIV4 with preservative 03/04/2016 Influenza injectable quadriv alent preservative free 07/07/2023,04/29/2021,06/14/2019,2018,03/22/2017 Influenza, IIV3, injectable 02/07/2014 Influenza, Split (incl. alexandra fied surface antigen) 02/21/2013 Influenza, seasonal, injecta ble, preservative free 02/21/2025,02/14/2024 Moderna Covid-19 Vaccine 12+ 04/27/2021,09/16/19 21,08/18/2020 Pfizer Covid-19 Vaccine 12+ 02/21/2025, Tdap 07/07/2023,05/22/2012 Family History Medical History Relation [...] Mass Index 27.46 05/02/2025 11:20 AM EST Plan of Treatment Health Maintenance Due Date Last Done Comments CT Colonography 1976 FIT DNA/Cologuard 1976 FIT 1976 FOBT 1976 Sigmoidoscopy 1976 Family Planning (PISQ) 1991 Pap Smear 1997 Cervical Cancer Screening 2006 HPV/Cotest 2006 Hepatitis B Vaccines (3 of 3 - 19+ 3-dose series) 12/18/2024 07/19/2024, 06/20/2024 Alcohol/Substance Use Screening 07/09/2025 07/09/2024 Depression Screening 07/09/2025 07/09/2024, 07/09/19 25 HIV Screening 07/09/2025 Postponed from 1976 (Patient Refused) SDOH Screening 07/09/2025 07/09/2024 Mammogram 08/25/2025 08/25/2024, 03/30/2022 Disability Screening 12/21/2025 12/21/2024 Colonoscopy 01/13/2026 01/13/2021 Colorectal Cancer Screening 01/13/2026 Tobacco Screening 03/14/2026 03/14/2025 Zoster Vaccines (1 of 2) 2026 DTaP/Tdap/Td Vaccines (3 - Td or Tdap) 07/07/2033 07/07/2023, 05/22/2012 RSV Patients and Patients Aged 60 years or older (1 - 1-dose 75+ series) 2051 Hepatitis C Screening Completed 03/26/2022 COVID-19 Vaccine Completed 02/21/2025, 05/2023, 04/27/2021, Additional history exists Influenza Vaccine Completed 02/21/2025, , 07/07/2023, Additional [...] Years) and At-Risk Patients (6 to 49) Years Aged Out No longer eligible based on patient's age to complete this topic RSV under 20 months Aged Out No longe r eligible based on patient's age to complete this topic Rotavirus Vaccines Aged Out No longer eligible based on patient's age to complete this topic Procedures Procedure Name Priority Date/Time Associated Diagnosis Comments HELICOBACTER PYLORI AG, EIA, STOOL Routine 02/21/2025 10:15 AM EDT Gastroesophageal reflux disease without esophagitis HM MAMMOGRAPHY Routine 08/25/2024 9:56 AM EDT ZZZ HISTORICAL HEPATITIS C AB W/REFL TO HCV RNA, QN, PCR Routine 03/26/2022 9:10 AM EST COLONOSCOPY Routine 01/13/2021 from Last 3 Months or Most Recently Relevant to Health Maintenance Results * Helicobacter pylori??Antigen, EIA, Stool (02/21/2025 10:15 AM EDT) H pylori Ag Stool SEE NOTE [facility] Comment:HELICOBACTER PYLORI AG, EIA, STOOL Micro Number: [id number] Test Status: Final Specimen Source: Stool Specimen Quality: Adequate H.pylori Ag: Not Detected Antimicrobials, proton pump inhibitors, and bismuth preparations inhibit H. pylori and ingestion up to two weeks prior to testing may cause false negative results. If clinically indicated the test should be repeated on a new specimen obtained two weeks after discontinuing treatment. Reference Range: Not DetectedTHIS TEST WAS PERFORMED AT:[email or web address] [place] [id number] WILEY MD Stool Rectal contents / Unknown 02/21/2025 10:15 AM EDT 02/21/2025 2:36 PM EDT Marlen Galindo MD LAB BODY FLUIDS AND STOOLS ORDERABLES Final Result [facility] [address] [place] [phone] * Mammography (08/25/2024 9:56 AM EDT) Anatomical Region Laterality Modality Other Historical Provider HEALTH MAINTENANCE Final Result * HEPATITIS C AB W/REFL TO HCV RNA, QN, PCR (03/26/2022 9:10 AM EST) HEPATITIS C ANTIBODY NON-REACTI VE NON-REACT [facility] CONVERTED [facility] INDEX 0.04 <1.00 [facility] Comment: HCV antibody was non-reactive. There is no laboratory evidence of HCV infection. In most cases, no further action is required. However, if recent HCV exposure is suspected, a test for HCV RNA (test code 73163) is suggested. For additional information please refer to http://education.[employer].Bubbli/faq/BWJ15i7 (This link is being provided for informational/ educational purposes only.) 03/26/2022 9:10 AM EST Marlen Galindo MD HISTORICAL/NON ORDERABLE LA BS Final Result [facility]VERT[facility]GAC[facility] * Colonoscopy (01/13/2021) Colonoscopy Normal Normal Narrative [place] Damon - 01/13/2021 Recommended 5 year follow up Historical Provider MD HEALTH MAINTENANCE Final Result from Last 3 Months or Most Recently Relevant to Health Maintenance Insurance ONE [facility] < [address] [place] [phone] Care Teams Barrel Tester And Drainer Relationship Specialty Start Date End Date Marlen Galindo MD [address] [place] [address] PCP - General Internal Medicine 12/23/14
--- OUTSIDE RECORDS SUMMARY | 2025-05-02 15:45 | XMS_ITS | Encounter Summary ---
Author Organization [employer] [facility] Address [address] [place] [address] Care Team Providers Care River Expedition Guide Name Role Phone Marlen Galindo MD Primary Care Provider [phone] Encounter Details Date Type Department Care Team (Latest Contact Info) Description 03/19/2021 Abstract HHC CONVERSIONS Dental, Provider, DDS Social History Tobacco [...] on file documented as of this encounter Visit Diagnoses Not on filedocumented in this encounter Care Teams River Expedition Guide Relationship Specialty Start Date End Date Marlen Galindo MD [address] [place] [address] PCP - General Internal Medicine 12/23/14 documented as of this encounter
--- OUTSIDE RECORDS SUMMARY | 2025-05-02 15:45 | XMS_ITS | Encounter Summary ---
Author Organization [employer] Address [address] [facility] 7t [place] [address] Care Team Providers Care Brushing Machine Operator Name Role Phone Marlen Galindo MD Primary Care Provider [phone] Encounter Details Date Type Department Care Team (Latest Contact Info) Description 05/02/2025 Travel Social History Tobacco Use Types Packs/Day [...] documented as of this encounter Care Teams Brushing Machine Operator Relationship Specialty Start Date End Date Marlen Galindo MD [address] [place] [phone] PCP - General Internal Medicine 12/23/14 documented as of this encounter
--- OUTSIDE RECORDS SUMMARY | 2025-05-02 15:45 | XMS_ITS | Clinical Summary ---
Author Organization [facility] Address [address] [place] [address] Phone Care Team Providers Care Sap Portal Developer Name Role Phone Marlen Galindo MD Primary Care Provider [phone] Social History Tobacco Use Types Packs/Day Years Used Date Smoking Tobacco: Never Assessed Comments Unknown Sex and Gender Information Value Date Recorded Sex Assigned at Female 04/02/2024 12:18 PM EST Legal Sex Female 10:45 PM EST Gender Identity Female 04/02/2024 12:18 PM EST Sexual Orientation Straight 04/02/2024 12 :18 PM EST Plan of Treatment Upcoming Encounters Date Type Department Care Team (Late st Contact Info) Description 08/20/2025 1:20 PM EDT Office Visit Gastroenterology - [address] [phone] Sussy Fortune PA [address] [place] [address] Health Maintenance Due Date Last Done Comments Breast Cancer Screening 1976 Colorectal Cancer Screening: Colonoscopy 1976 Cervical Cancer Screening: Pap Smear 1997 HIV Screening 04/18/2022 Hepatitis C Screening 04/18/2022 Medicare Annual Wellness Visit 04/18/2022 Social Influencers of Health Screening 04/18/2022 Depression Screening 05/16/2024 Hepatitis B Vaccines (3 of 3 - 19+ 3-dose series) 12/18/2024 07/19/2024, 06/20/2024 COVID-19 Vaccine (5 - 2025-26 season) 2025 02/14/2024, 04/27/2021, 09/15/2020, Additional history exists Influenza Vaccine (#1) 2025 , 07/07/2023, 04/29/2021, Additional history exists DTaP,Tdap,and Td Vaccines (3 - Td or Tdap) 07/07/2033 07/07/2023, 05/22/2012 RSV Immunization Adult Patients (1 - 1-dose 75+ series) 2051 HIB Vaccines Aged Out No longer eligi [...] patient's age to complete this topic Insurance [facility] MEDICARE Member Subscriber Plan / Payer (Ef fective 2018-Present) Name:NIVIA IBARRA Relation to Subscriber:Self Name:Nivia Carr Payer ID:[id number] Group ID:[id number] Type:Not on file Address: [facility] [facility] [place] [phone] Care Teams Sap Portal Developer Relationship Specialty Start Date End Date Marlen Galindo MD [address] [place] [address] PCP - General Internal Medicine 04/02/24
--- OUTSIDE RECORDS SUMMARY | 2025-05-02 15:45 | XMS_ITS | Clinical Summary ---
Author Organization [facility] Address [address] [place] [address] Phone Care Team Providers Care Liner Reroll Tender Name Role Phone Marlen Galindo MD Primary Care Pr ovider Allergies No known active allergies Medications cholecalciferol (VITAMIN D3) 25 MCG (1,000 unit) tablet Take 2,000 Units by mouth daily. Active fexofenadine (MCKAYLA) 180 MG tablet Take 180 mg by mouth daily. Active Family History Medical History Relation Comments Diabetes Father Heart disease Father Hypertension Father Autoimmune disease Paternal Cousin Clotting disorder Paternal Cousin Relation Status Comments Father Paternal Cousin Alive Social History Tobacco Use Types Packs/Day Years Used Date Smoking Tobacco: Never Smokeless Tobacco: Never Tobacco Cessation:Counseling Given: Not Answered Alcohol Use Standard Drinks/Week Comments Not Currently 0 (1 standard drink = 0.6 oz pur e alcohol) Education Answer Date Recorded Are you interested in more education? Not on jamie e 09/10/2022 Are you concerned about learning? Not on file 09/10/2022 No 09/10/2022 No 09/10/2022 Digital Access Answer Date Recorded No 10/12/2022 No 10/12/2022 Reliable internet access at home? Not on file 10/12/2022 Device with a working camera? 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 Not on file Not on file Last Filed Vital Signs Vital Sign Reading Time Taken Comments Blood Pressure 110/60 03/23/2022 12:16 PM EST Pulse 76 03/23/2022 12:16 PM EST Temperature 36.5 C (97.7 F) 03/23/2022 12:16 PM EST Respiratory Rate 17 03/23/2022 12:1 6 PM EST Oxygen Saturation - - Inhaled Oxygen Concentration - - Weight 65.2 kg (143 lb 12.8 oz) 022 12:16 PM EST Height 160 cm (5' 3 ) 03/23/2022 12:16 PM EST Body Mass Index 25.47 03/23/2022 12:16 PM EST Plan of Treatment Health Maintenance Due Date Last Done Comments Adult Td,Tdap Booster 1976 LIPID PANEL 1976 DEPRESSION SCREENING 1988 HEPATITIS C SCREENING 1994 HIV ONE-TIME SCREENING (18-6 5 YEARS) 1994 PAP SMEAR 1997 MAMMOGRAM 2016 COLOGUARD 2021 COLONOSCOPY 2021 COLORECTAL CANCER SCREENING 2021 FIT TEST 2021 FOBT 2021 SIGMOIDOSCOPY 2021 VIRTUAL COLONOSCOPY 2021 INFLUENZA VACCINE (#1) 2024 COVID-19 VACCINE ( - 2024-2 6 season) 2025 SMOKING STATUS SCREENING (On ce After 26 Yrs) Completed 04/13/2022 HEPATITIS A VACCINES Aged Out No long er eligible based on patient's age to complete this topic HIB VACCINES Aged Out No longer eligi ble based on patient's age to complete this topic MENINGOCOCCAL VACCINES (ACWY) Aged Out No longer eligible based on patient's age to complete this topic MENINGOCOCCAL VACCINES (B) Aged Out N o longer eligible based on patient's age to complete this topic PNEUMOCOCCAL VACCINES (0-49 years) Aged Out No longer eligible based on patient's age to complete this topic Medical Devices Not on file Insurance ONE CARE MEDICARE REPLACEMENT MEDICARE PART A & B CARE MEDICARE REPLACEMENT MEDICARE PART A & B ONE CARE MEDICARE REPLACEMENT MEDICARE PART A & B CARE MEDICARE REPLACEMENT MEDICARE PART A & B ONE CARE MEDICARE REPLACEMENT MEDICARE PART A & B CARE MEDICARE REPLACEMENT MEDICARE PART A & B ONE CARE MEDICARE REPLACEMENT MEDICARE PART A & B CARE MEDICARE REPLACEMENT [place] [address] MEDICARE PART A & B ONE CARE MEDICARE REPLACEMENT [place] [address] MEDICARE PART A & B Care Teams Liner Reroll Tender Relationship Specialty Start Date End Date Marlen Galindo MD PCP - General Internal Medicine 03/12/22 Additional Source Comments The information contained in this document represents components of the legal health record. It is not the complete legal health record.[facility]
--- OUTSIDE RECORDS SUMMARY | 2025-05-02 15:45 | XMS_ITS | Encounter Summary ---
Author Organization [employer] Address [address] [facility] 7 [place] [address] Care Team Providers Care Yard Attendant Name Role Phone Marlen Galindo MD Primary Care Provider [phone] Encounter Details Date Type Department Care Team (Latest Contact Info) Description 02/24/2025 Results Follow-Up [facility] [address] [place], [place] [id number] Marlen Galindo MD [address] [place] [address] Helicobacter pylori Antigen, EIA, Stool Social History Tobacco Use Types Packs/Day Years [...] documented as of this encounter Care Teams Yard Attendant Relationship Specialty Start Date End Date Marlen Galindo MD [address] [place] [address] PCP - General Internal Medicine 12/23/14 documented as of this encounter
--- OUTSIDE RECORDS SUMMARY | 2025-05-02 15:45 | XMS_ITS | Data Portability ---
Author Organization Ellie, [email or web address] Address [address] [place] [address] Care Team Providers Care Strip Feeder Name Role Phone [facility] Referring Provider [phone] [facility] R eferring Provider Assessment [...] Available No t Available Vitals Date Recorded Oxygen saturation Heart rate Respiratory rate Systolic And Diastolic Provider Name and Address Organization Details Last Updated DateTime 08/21/2021 95.98 % 89 /min 17.99 /min 117/79 mm[Hg] Oxana Arce MD [address] [facility],[address], [place], [address] , Ellie 2 22:12:38 Date Recorded Heart rate Oxygen saturation Respiratory rate Body temperature Systolic And Diastolic Provider Name and Address Organization Details Last Updated DateTime 3 75 /min 97 % 20 /min 98 [degF] 122/82 mm[Hg] Not Available [employer] - production 3 16:01:38 Social History None recorded. Functional Status None recorded. Mental Status None recorded. Family History Nothing Reported. Medical History No medical history recorded. Gynecological HistoryNo gynecological history recorded. Obstetrics History GPAL:G 0 P 0 0 0 0 Past Encounters Encounter ID Performer Location Encounter Start Date Encounter Closed Date Diagnosis/Indication Diagnosis SNOMED-CT Code Diagnosis ICD10 Code Diagnosis IMO Codes Diagnosis Note [id number] Oxana Arce MD Main - [address] [phone] 08/21/2021 19:59:08 01/06/2022 15:03:51 Edema of lower extremity 718719953 R60.0 46 year old female with 1 day of left lower extremity edema and pain. Differenti al includes strained/t orn gastroc muscle vs DVT. Unable to rule out DVT without ultrasound - recommende d visit to ER for lower extremity doppler. [id number] Mekhi Monique [facility] [address] [place] [phone] 10/19/2022 16:01:36 10/20/2022 10:40:55 Pain of left shoulder blade 928958870 M25.512 This 47-year-ol d female developed sharp [...] Recorded Advance Directives Directive None Recorded Payers Insurance Date Sequence Insurance Name Policy Number Policy De Santiago Covered Member ID De Santiago Member ID Guarantor Name 10/19/2022 1 [facility] - DOS PRIOR TO 2022 - DUAL ELIGIBLE (MEDICARE REPLACEMENT/ADV ANTAGE - HMO) Nivia Albarado [id number] Nivia Albarado 10/19/[address] [facility] [employer] - DOS ON OR AFTER 2022 - DUAL ELIGIBLE - SHELTER OPTIONS AND ONE CARE (MEDICARE REPLACEMENT/ADV ANTAGE - HMO) Nivia Moralesan [id number] Nivia Albarado Notes Date Note Type Note [...] day call for office. Requires evaluation today. [employer] notes: Sent to evaluate pt with LLE [...] from affected area and extended distally. Consulted [facility] who recommended that pt present to ER to r/o DVT and further workup. Pt agreed and will be driven to [facility] after my departure. HR 89, 117/79, 96% room air. RR 18 Oxana Arce MD [address] [place] [address],[address], [place], [phone], [place] [employer] 08/21/2021 22:13:32 10/19/2022 text/html ROS as noted in the HPI HPI: PMH: Legal Blindness Call to Nivia [...] to process this visit. Mekhi Monique MD [address] [place] [address],[address] [facility], [place], [phone], MACY BATES 10/19/2022 16:06:20 OBGyn Episode No OBEpisode recorded.
--- OUTSIDE RECORDS SUMMARY | 2025-05-02 15:45 | XMS_ITS | Encounter Summary ---
Author Organization [employer] Address [address] [facility] 7 [place] [address] Care Team Providers Care Barrel Plater Name Role Phone Marlen Galindo MD Primary Care Provider [phone] Reason for Visit * Reason Comments Med Refill Encounter Details Date Type Department Care Team ([facility] Contact Info) Description 03/14/2025 Refill [facility] [address] [place] [address] Marlen Galindo MD [address] [place] [address] Plantar fasciitis of left foot Social History Tobacco Use Types Packs/Day Years [...] Visit Diagnoses Diagnosis Plantar fasciitis of left foot documented in this encounter Additional Health Concerns Assessment Noted Time PHQ-9 Depression Total Score: 4 07/09/19 25 9:52 AM EST documented as of this encounter Care Teams Barrel Plater Relationship Specialty Start Date End Date Marlen Galindo MD [address] [place] [address] PCP - General Internal Medicine 12/23/14 documented as of this encounter
--- OUTSIDE RECORDS SUMMARY | 2025-05-02 15:45 | XMS_ITS | Encounter Summary ---
Author Organization [employer] Address [address] [address] Care Team Providers Care Health And Human Performance Professor Name Role Phone Marlen Galindo MD Primary Care Provider +- [phone] Reason for Referral * Consultation (Routine) - Closed Specialty Diagnoses / Procedures Referred By Contmelissa t Referred To Contact Allergy Diagnoses Seasonal allergies Marlen Galindo MD [address] [place] [address] Phone: tel: fax: Nando Wren MD [address] [place] [address] [address] [place] [address] Phone: tel: fax: Referral ID Status Reason Start Date Expiration Date V isits Requested Visits Authorized [id number] Closed Specialty Services Required 04/04/2024 04/04/2025 1 1 Encounter Details Date Type Department Care Team (Late st Contact Info) Description 04/04/2024 Orders Only [facility] [address] [place] [address] Marlen Galindo MD [address] [place] [phone] Seasonal allergies (Primary Dx) Social History Tobacco [...] as of this encounter Plan of Treatment Scheduled Referrals Name Type Priority Associated Diagnoses [...] documented as of this encounter Care Teams Health And Human Performance Professor Relationship Specialty Start Date End Date Marlen Galindo MD [address] [place] [address] PCP - General Internal Medicine 12/23/14 documented as of this encounter
== END 2025-05-02 11:52 | disposition home or self-care (01) ==
LOC: HO.CHCLDS 11:51
PROVIDERS: Visit Provider Internal Medicine
DX: R63.5 Abnormal weight gain (principal)
CPT/HCPCS: 36415; 84443